=== PATIENT | female | born 1995 | race Caucasian/White ===

== ENCOUNTER 2020-04-01 12:58 | Emergency (ER) | payer BC, SELFPAY ==
[2020-04-01 13:05] VITALS: O2SAT 100
--- NOTE | 2020-04-01 13:05 | XRR_ITS ---
PROCEDURE INFORMATION: Exam: XR Chest, 1 View Exam date and time: 04/01/2020 1:33 PM Age: 24 years old Clinical indication: Cough and dyspnea; Additional info: Dyspnea/cough allergic reaction-lips swelling TECHNIQUE: Imaging protocol: XR of the chest Views: 1 view. COMPARISON: CR Chest 1 [place] [id number] 11/20/2018 8:53 PM FINDINGS: Lungs: Probable minor left lung base volume loss with indistinct lateral costophrenic angle. Visualized lung cunningham otherwise clear. Pleural space: Unremarkable. No obvious pleural effusion. No pneumothorax. Heart/Mediastinum: Unremarkable. No cardiomegaly. Bones/joints: Incidental right cervical rib. XR/XR chest 1V portable [id number] IMPRESSION: Suspect minor volume loss/atelectasis left lung base laterally.
--- NOTE | 2020-04-01 13:06 | ED_ITS ---
HPI - Allergic Reaction General: Chief complaint: Allergic Reaction Stated complaint: allergic reaction Time Seen by Provider: 04/01/20 13:05 History of Present Illness: HPI narrative: 24-year-old female presents emergency room with reported allergic reaction she was around some food began to have difficult time breathing complained of tightness in her throat and mouth. She was given hydroxyzine in route. Did take Benadryl hydroxyzine and epi prior to arrival. She is breathing rapidly appears to be hyperventilating she has numbness and tingling to her fingertips and perioral. MD complaint: allergic reaction Onset (ago): minute(s) Exposure: food Associated symptoms: Reports difficulty breathing, dysphagia, dizziness, hoarseness, itching and nausea; Deny abdominal pain, facial swelling, lip swelling, tongue swelling or vomiting Severity: moderate Treatment prior to arrival: epinephrine and other (Hydroxyzine and Benadryl) Review of Systems Const: Denies: fever(s), chills, body aches, change in appetite, fatigue or malaise ENMT: Reports: hoarseness Card: Denies: chest pain, edema, dyspnea on exertion or orthopnea Resp: Denies: dyspnea, productive cough or non-productive cough GI: Reports: nausea and dysphagia; Denies: abdominal pain or vomiting : Denies: flank pain, difficulty voiding, dysuria, urinary frequency or urinary urgency Skin/Breast: Denies: rash or pruritus Neuro: Reports: dizziness All/Imm: Denies: tongue swelling or facial swelling Physical Exam Const: COMMON NORMALS: no acute distress GENERAL APPEARANCE: cooperative and comfortable ORIENTATION/CONSCIOUSNESS: Yes awake, Yes oriented to person, Yes oriented to place and Yes oriented to time HENMT: COMMON NORMALS: normocephalic, atraumatic and hearing grossly normal bilaterally HEAD & SCALP: normocephalic and atraumatic OTHER: No stridor no facial swelling or edema notes edema of the posterior pharynx of the tongue or lips or face. She had been treated prior to arrival. Eye: COMMON NORMALS: Equal, round and reactive pupils present, EOMs intact bi laterally, conjunctivae normal and no scleral icterus CONJUNCTIVA: Yes conjunctivae normal PUPIL: Yes Equal, round and reactive pupils present Neck/C-Spine: COMMON NORMALS: no JVD Lymph: LYMPHATIC: no lymphadenopathy noted and no lymphedema noted Resp: COMMON NORMALS: normal respiratory effort, No retractions, No use of accessory muscles and clear to auscultation bilaterally AUSCULTATION: clear to auscultation bilaterally Cardio: COMMON NORMALS: no JVD, regular rate, regular rhythm and No murmurs present (Cardio) RATE: regular rate RHYTHM: regular rhythm GI: COMMON NORMALS: Soft to palpation and No hepatosplenomegaly present AUSCULTATION: Yes normoactive bowel sounds PALPATION: Yes Soft to palpation, No Tenderness to palpation present (GI), No Guarding due to palpation present (GI) and Yes No hepatosplenomegaly present Extremity: COMMON NORMALS: normal to inspection, capillary refill normal, no clubbing, cyanosis or edema, no calf tenderness and no pedal edema Neuro: SENSORIUM/ORIENTATION: Yes oriented to person, Yes oriented to place and Yes oriented to time Skin: COMMON NORMALS: no rashes or lesions noted GENERAL SKIN EXAM: no rashes or lesions noted Course Vital Signs: Vital signs: Vital Signs Pulse Rate 97 04/01/20 15:20 Respiratory Rate 19 H 04/01/20 15:20 Blood Pressure 133/72 04/01/20 15:20 Pulse Oximetry 97 04/01/20 15:20 MDM - Allergic Reaction MDM Narrative: Medical decision making narrative: Patient was monitored for 2 hours had no recurrence she is feeling much better no stridor no wheezing we will go ahead and discharge home if has recurrence of any symptoms at all she should return immediately. She should refill her EpiPen as well as states she has some available to her with refills. Lab Data: Labs: Lab Results 04/01/20 04/01/20 04/01/20 Range/Units 13:05 13:05 13:05 WBC 8.9 (4.0-10.0) 10^3/ uL RBC 5.06 (4.1-5.3) 10^6/u L Hgb 13.7 (11.5-15.3) g/dL Hct 42.4 (37.0-47.0) % MCV 83.8 (81-99) fL MCH 27.1 L (28.0-34.0) pg MCHC 32.3 (30.0-36.0) g/dL RDW 13.0 (12.1-15.1) % Plt Count 294 (130-400) 10^3/c mm MPV 10.8 H (7.4-10.4) fL Neut % (Auto) 56.0 % Lymph % (Auto) 36.8 % [place] % (Auto) 5.6 % Eos % (Auto) 1.0 % Baso % (Auto) 0.3 % Neut # (Auto) 4.97 (1.8-7.7) 10^3/u L Lymph # (Auto) 3.3 (0.8-4.8) 10^3/u L [place] # (Auto) 0.5 (0.2-0.9) 10^3/u L Eos # (Auto) 0.1 (0.0-0.8) 10^3/u L Baso # (Auto) 0.0 (0.0-0.1) 10^3/u L Nucleated RBC % (a uto) 0 % Nucleated RBCs # 0.0 /100WBC Specimen Type Arterial Sample Site Radial, left ABG pH 7.45 (7.35-7.45) ABG pCO2 30.7 L (35-45) mmHg ABG pO2 84.2 (80.0-100.0) mmH g ABG HCO3 21.2 L (22-26) mmol/L ABG O2 Saturation 97.8 ABG Base Excess -1.9 (-2.0-2.0) mmol/ L Ras Test Pos A-a O2 Gradient 3.5 L (5-10) mmHg Hematocrit 41.4 (37-47) % Hgb O2 Saturation 96.2 (95-100) % Carboxyhemoglobin 0.9 (0.4-20.1) %THgb Methemoglobin 0.8 (0.4-1.5) % Total Hemoglobin 13.5 (12-16) g/dL Sodium 141.0 138 (131-143) mmol/L Potassium 3.7 4.1 (3.5-5.0) mmol/L Glucose 111.0 112 (70-115) mg/dL Ionized Calcium 1.2 (1.1-1.4) mmol/L O2 Delivery Device Room air FiO2 21.0 % Milking Machine Operator ID Cak Chloride 103 (98-107) mmol/L Carbon Dioxide 22 (22-29) mmol/L Anion Gap 17.1 (5-19) BUN 13 (6-20) mg/dL Creatinine 0.8 (0.5-0.9) mg/dL GFR Calculation 87.4 L (90-130) mL/min Calculated Osmolal ity 283 L (285-295) mOsm/k g Calcium 10.2 (8.5-10.5) mg/dL Total Bilirubin 0.3 (0.15-1.2) mg/dL AST 18 (0-32) U/L ALT 14 (0-33) U/L Alkaline Phosphata se 79 (35-105) IU/L Total Protein 8.0 (6.6-8.7) g/dL Albumin 4.6 (3.5-5.2) g/dL Globulin 3.4 (1.3-4.6) g/dL Discharge Plan Discharge Patient Disposition: Home Clinical Impression: Allergic reaction Condition: Stable Prescriptions: No Action cetirizine 10 mg Tablet 10 mg PO DAILY PRN (Reason: allergies) RF: 0 hydroxyzine HCl 10 mg/5 mL solution 10 mg PO PRN PRN (Reason: itching/hives) RF: 0 EpiPen 0.3 mg/0.3 mL Auto-Injector See Rx Instructions .ROUTE .COMPLEX RF: 0 Vitamin D3 50 mcg (2,000 unit) Tablet 50 mcg PO DAILY RF: 0 Discharge Orders: Discharge Order (Routine); Ordered 04/01/20 Ordered By: Homero Frazier Referrals: Natalie Tomas MD [Primary Care Provider] - Discharge Diet: Usual diet Discharge Activity: Increase activity as tolerated Activity Restrictions/Additional Instructions: Return to the emergency room if you have any problems or difficulty with breath ing or some facial swelling or sensation of your throat swelling. Discharge Date/Time: 04/01/20 15:20 Coding Level of Care Code ED Sign Writer Letterer Or Painter for Chg Fwd Exam Comprehensive
[2020-04-01 13:08] VITALS: BP 131/87; PULSE 100; RESP 25; O2SAT 100; BMI 28.1
[2020-04-01] MEDS: diphenhydrAMINE 50 mg/mL SDV 1mL IVP (13:11)
[2020-04-01 13:16] LABS: ABG PCO2 30.7 mmHg (35-45); ABG PH Result 7.45 (7.35-7.45); Alveolar-Arterial Oxygen Gradi 3.5 mmHg (5-10); Arterial Blood Gas Hematocrit 41.4 % (37-47); Base Excess ABG -1.9 mmol/L (-2.0-2.0); Blood Gas Allen Test Pos; Blood Gas Operator Identificat CAK; Blood Gas Sample Site Radial, left; Blood Gas Sample Type Arterial; Carboxyhemoglobin 0.9 %THgb (0.4-20.1); HCO3 ABG 21.2 mmol/L (22-26); HGB O2 Sat 96.2 % (95-100); Ionized Calcium Level - ABG 1.2 mmol/L (1.1-1.4); Methemoglobin 0.8 % (0.4-1.5); Oxygen Device ROOM AIR; Oxygen Saturation ABG 97.8; PO2 ABG 84.2 mmHg (80.0-100.0); Potassium Level - ABG 3.7 mmol/L (3.5-5.0); Total Hemoglobin 13.5 g/dL (12-16)
[2020-04-01 13:23] LABS: Basophils % 0.3 %; Eosinophils # 0.1 10^3/uL (0.0-0.8); Hematocrit 42.4 % (37.0-47.0); Hemoglobin 13.7 g/dL (11.5-15.3); Lymphocytes # 3.3 10^3/uL (0.8-4.8); Lymphocytes % 36.8 %; Mean Corpuscular HGB Conc 32.3 g/dL (30.0-36.0); Mean Corpuscular Hemoglobin 27.1 pg (28.0-34.0); Mean Corpuscular Volume 83.8 fL (81-99); Mean Platelet Volume 10.8 fL (7.4-10.4); Monocytes # 0.5 10^3/uL (0.2-0.9); Monocytes % 5.6 %; Neutrophils # 4.97 10^3/uL (1.8-7.7); Nucleated Red Blood Cells % 0 %; Platelet Count 294 10^3/cmm (130-400); Red Blood Count 5.06 10^6/uL (4.1-5.3); White Blood Count 8.9 10^3/uL (4.0-10.0)
[2020-04-01 13:36] LABS: Alanine Aminotransferase 14 U/L (0-33); Albumin Level 4.6 g/dL (3.5-5.2); Alkaline Phosphatase 79 IU/L (35-105); Anion Gap 17.1 (5-19); Aspartate Amino Transferase 18 U/L (0-32); Blood Urea Nitrogen 13 mg/dL (6-20); Calcium 10.2 mg/dL (8.5-10.5); Carbon Dioxide 22 mmol/L (22-29); Chloride 103 mmol/L (98-107); Globulin 3.4 g/dL (1.3-4.6); Glomerular Filtration Rate 87.4 mL/min (90-130); Glucose 112 mg/dL (65-115); Osmolality Calculated 283 mOsm/kg (285-295); Potassium 4.1 mmol/L (3.5-5.1); Sodium 138 mmol/L (136-145); Total Bilirubin 0.3 mg/dL (0.15-1.2)
[2020-04-01 14:00] VITALS: BP 124/76; PULSE 94; RESP 16; O2SAT 98
[2020-04-01 15:20] VITALS: BP 133/72; PULSE 97; RESP 19; O2SAT 97
== END 2020-04-01 15:20 | disposition home or self-care (01) ==
PROVIDERS: Emergency Provider Family Medicine; PCP Family Medicine
DX: T78.40XA Allergy, unspecified, initial encounter (principal)
CPT/HCPCS: 12345; 36600; 71045; 80051; 80053; 82810; 83986; 85025; 96374; 96375; 99282; J1200

== ENCOUNTER 2021-01-24 20:03 | Emergency (ER) | payer BC, SELFPAY ==
[2021-01-24] VITALS (7 sets, daily range): BP systolic 108–147; BP diastolic 66–95; PULSE 98–129; RESP 16–30; TEMP 36.8; O2SAT 96–97; BMI 31.1
--- NOTE | 2021-01-24 03:22 | XRR_ITS ---
PROCEDURE INFORMATION: Exam: XR Chest Exam date and time: 01/24/2021 3:22 AM Age: 25 years old Clinical indication: Shortness of breath; Patient HX: SOB, allergic reaction to chicken tonight TECHNIQUE: Imaging protocol: XR of the chest. Views: 1 view. COMPARISON: CR XR chest 1V portable [id number] 04/01/2020 1:18 PM FINDINGS: Lungs: Unremarkable. No consolidation. Pleural spaces: Unremarkable. No pleural effusion. No pneumothorax. Heart/Mediastinum: Unremarkable. No cardiomegaly. Bones/joints: Unremarkable. XR/XR chest 1V portable [id number] IMPRESSION: No acute findings.
[2021-01-24] MEDS: diphenhydrAMINE 50 mg/mL SDV 1mL 25 MG IVP (20:20)
[2021-01-24] MEDS: famotidine 20 mg/2 mL INJ IVP (20:21)
--- NOTE | 2021-01-24 20:31 | PC.NURSE ---
States she feels better than at arrival; VSS. Speaking in full sentences. in room.
--- NOTE | 2021-01-24 20:51 | ED_ITS ---
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 She presents after having to give herself epinephrine via EpiPen due to ingestion of a substance. She began to itch, cough, and her throat began to feel tight. The first EpiPen did not completely relieve her symptoms, and she started to rebound, so on her way into the ER, she used a second 1. She also took hydroxyzine. She is starting to feel some better, certainly not worse at this point. MD complaint: allergic reaction and other Onset (ago): minute(s) Exposure: food Associated symptoms: Reports abdominal pain, difficulty breathing, hoarseness and tongue swelling; Deny facial swelling Severity: moderate Treatment prior to arrival: epinephrine and other Previous Allergic Reaction History: prior ED visit(s) and anaphylaxis Review of Systems Const: Denies: fever(s) or chills Eyes: Denies: change in vision ENMT: Reports: hoarseness Card: Reports: palpitations; Denies: chest pain Resp: Reports: dyspnea and non-productive cough; Denies: productive cough or wheezing GI: Reports: abdominal pain Neuro: Denies: confusion All/Imm: Reports: tongue swelling; Denies: facial swelling Physical Exam Const: GENERAL APPEARANCE: in distress, anxious and ill appearing ORIENTATION/CONSCIOUSNESS: Yes awake, Yes oriented to person, Yes oriented to place and Yes oriented to time HENMT: COMMON NORMALS: normocephalic and Normal external nose present HEAD & SCALP: normocephalic FACE & SINUS: normal facial exam NOSE: Normal external nose present and Normal nares present MOUTH: Normal oral and palatal mucosa present and tongue normal THROAT: posterior oropharynx normal and uvula midline Eye: COMMON NORMALS: Equal, round and reactive pupils present, EOMs intact bilaterally and conjunctivae normal CONJUNCTIVA: Yes conjunctivae normal PUPIL: Yes Equal, round and reactive pupils present Chest: COMMONS NORMALS: normal inspection of the chest Resp: COMMON NORMALS: normal respiratory effort, No use of accessory muscles and clear to auscultation bilaterally AUSCULTATION: clear to auscultation bilaterally Cardio: COMMON NORMALS: regular rate and regular rhythm RATE: regular rate RHYTHM: regular rhythm GI: COMMON NORMALS: Normal to inspection, nondistended, normoactive bowel sounds present and Soft to palpation PALPATION: Yes Soft to palpation Neuro: SENSORIUM/ORIENTATION: Yes oriented to person, Yes oriented to place and Yes oriented to time Course Vital Signs: Vital signs: Vital Signs Temperature 98.2 F 01/24/21 22:45 Pulse Rate 129 H 01/24/21 22:45 Respiratory Rate 16 01/24/21 22:45 Blood Pressure 111/73 01/24/21 22:45 Pulse Oximetry 97 01/24/21 22:45 MDM - Allergic Reaction MDM Narrative: Medical decision making narrative: Patient is much improved. She is not itching. Not coughing. Swelling and tightness in the throat is improved she shows no signs of rebound past 2 hours status post use of EpiPen. She will be allowed home. She will continue her cetirizine, and she will be placed on Medrol for the next few days. Discharge Plan Discharge Patient Disposition: Home Clinical Impression: Allergic reaction Qualifiers: Encounter type: initial encounter Qualified Code(s): T78.40XA - Allergy, unspecified, initial encounter Condition: Stable Prescriptions: New Medrol (Jmi) 4 mg tablets,dose pack See Rx Instructions .ROUTE .COMPLEX Qty: 21 RF: 0 EpiPen 2-Jim 0.3 mg/0.3 mL auto-injector 0.3 mg IM Q10M PRN (Reason: anaphylaxis) Qty: 1 RF: 0 No Action cetirizine 10 mg Tablet 10 mg PO DAILY PRN (Reason: allergies) RF: 0 hydroxyzine HCl 10 mg/5 mL solution 10 mg PO PRN PRN (Reason: itching/hives) RF: 0 EpiPen 0.3 mg/0.3 mL Auto-Injector See Rx Instructions .ROUTE .COMPLEX RF: 0 Vitamin D3 50 mcg (2,000 unit) Tablet 50 mcg PO DAILY RF: 0 Discharge Orders: Discharge ED (Routine); Ordered 01/24/21 Ordered By: Brian Sibley Referrals: Natalie Tomas MD [Primary Care Provider] - 4-7 days Discharge Diet: Advance as tolerated Discharge Activity: Resume usual activity Patient Instructions: Food Allergy (ED), Anaphylaxis (ED) Activity Restrictions/Additional Instructions: Return for any significant return of your symptoms. Coding Level of Care Code ED Delivery Truck Driver Heavy for Chg Fwd Exam Detailed
--- NOTE | 2021-01-24 21:26 | PC.NURSE ---
REports feeling much better now. No cough or clearing of throat noted at this time. VSS. in room.
== END 2021-01-24 22:46 | disposition home or self-care (01) ==
PROVIDERS: Emergency Provider Emergency Medicine; PCP Family Medicine
DX: T78.40XA Allergy, unspecified, initial encounter (principal)
CPT/HCPCS: 71045; 96374; 96375; 99284; J1200; J2930; J3490

== ENCOUNTER 2022-07-03 17:37 | Emergency (ER) | payer BC, SELFPAY ==
[2022-07-03 18:12] VITALS: BP 115/78; PULSE 105; RESP 16; TEMP 37.4; O2SAT 99; BMI 37.0
--- NOTE | 2022-07-03 19:27 | ED_ITS ---
HPI - Abdominal Pain General: Chief Complaint: Abdominal Pain Stated Complaint: 5-6 weeks , cramping Time Seen by Provider: 07/03/22 19:24 History of Present Illness: Patient is a G1 26-year-old female that is currently 5 weeks and is having cramping abdominal pain. Symptoms started approximately 3 days ago. She reports having some intermittent lower abdominal and pelvic cramping that has progressed over the past couple days and is now becoming more constant. She reports 3 days ago having some brown spotting type discharge that has now progressed and passing some clots. She says bleeding is very mild and she has not been having any red blood and bleeding is not heavy enough to bleed through any pads. Endorses some mild nausea. Last menstrual period was on May 21. Associated Symptoms: Reports GI cramping and nausea; Denies chills, constipation, diarrhea, dysuria, fever(s), hematochezia, hematuria and vomiting Related Data: Date of Last Menstrual Period: 05/21/22 Review of Systems Const: Denies: fever(s), chills or fatigue Eyes: Denies: change in vision or eye discomfort ENMT: Denies: throat pain, odynophagia, nasal discharge or nasal congestion Card: Denies: chest pain, palpitations, edema, swelling of feet/ankles, dyspnea on exertion or orthopnea Resp: Denies: dyspnea, productive cough or non-productive cough GI: Reports: nausea and GI cramping; Denies: abdominal pain, vomiting, diarrhea, constipation or hematochezia : Reports: vaginal bleeding (Spotting and passing some occasional clots.); Denies: flank pain, dysuria or hematuria Musc: Denies: neck pain, back pain or extremity swelling Skin/Breast: Denies: rash or new lesions Neuro: Denies: headache(s), numbness in extremities or weakness in extremities PFSH ED PFSH: Medical History No pertinent family history Surgical History No pertinent past surgical history Female Reproductive History: Date of last menstrual period: 05/21/22 Physical Exam Const: COMMON NORMALS: patient oriented x3 and alert GENERAL APPEARANCE: cooperative HENMT: COMMON NORMALS: normocephalic HEAD & SCALP: normocephalic MOUTH: Normal oral and palatal mucosa present THROAT: posterior oropharynx normal and uvula midline Eye: COMMON NORMALS: Equal, round and reactive pupils present and conjunctivae normal CONJUNCTIVA: Yes conjunctivae normal PUPIL: Yes Equal, round and reactive pupils present Neck/C-Spine: COMMON NORMALS: supple GENERAL: Yes normal visual inspection Resp: COMMON NORMALS: normal respiratory effort, No retractions, No use of accessory muscles and clear to auscultation bilaterally AUSCULTATION: clear to auscultation bilaterally Cardio: COMMON NORMALS: regular rate, regular rhythm, S1 normal heart sound present, S2 normal heart sound present, No gallops present (Cardio), No clicks present (Cardio), No murmurs present (Cardio) and Peripheral pulses 2+ thr oughout RATE: regular rate RHYTHM: regular rhythm HEART SOUNDS: S1 normal heart sound present and S2 normal heart sound present PERIPHERAL PULSES: Peripheral pulses 2+ throughout GI: COMMON NORMALS: Normal to inspection, nondistended, normoactive bowel sounds present, Soft to palpation, non-tender and no masses PALPATION: Yes Soft to palpation : COMMON NORMALS: Yes no CVA tenderness BLADDER/KIDNEY EXAM: Yes no CVA tenderness Back/Pelvis: COMMON NORMALS: no CVA tenderness Extremity: COMMON NORMALS: normal to inspection Neuro: COMMON NORMALS: patient oriented x3 SENSORIUM/ORIENTATION: Yes alert GAIT: Yes Normal gait present Skin: GENERAL SKIN EXAM: dry skin Course Vital Signs: Vital signs: Vital Signs Temperature 99.3 F 07/03/22 18:12 Pulse Rate 105 H 07/03/22 18:12 Respiratory Rate 16 07/03/22 18:12 Blood Pressure 115/78 07/03/22 18:12 Pulse Oximetry 99 07/03/22 18:12 Oxygen Delivery Me thod 07/03/22 18:12 MDM - Abdominal Pain Medical Decision Making Patient is a G1 26-year-old female that is currently 5 weeks and is having cramping abdominal pain. Symptoms started approximately 3 days ago. She reports having some intermittent lower abdominal and pelvic cramping that has progressed over the past couple days and is now becoming more constant. She reports 3 days ago having some brown spotting type discharge that has now progressed and passing some clots. She says bleeding is very mild and she has not been having any red blood and bleeding is not heavy enough to bleed through any pads. Vital stable. Exam of patient is benign. Sodium 128 and the rest of CBC and CMP were unremarkable. hCG quant 15,730. UA was unremarkable. Ultrasound OB showed single live intrauterine at about 6 weeks and 1 day. heart rate around 111. Patient does have a small uterine fibroid measures up to 9 mm. Cervix unremarkable. Patient was given p.o. tablet of sodium chloride and she was stable for discharge home. She was told to rest and limit any activity and lifting for the next couple days and she has a appointment with her OB doctor this coming July 05. Return to ED precautions given. Patient understood and agreed with plan. Lab Data I reviewed the patient's lab results. 07/03/22 19:45 07/03/22 19:45 Labs/Radiology: Radiology Impressions Obstetrics Ultrasound 07/03/22 19:41 IMPRESSION: 1. Single live IUP, age of about 6 weeks 1 day which gives an MARISSA of 02/25/2023. 2. Full details above. Advise appropriate meat cooler follow-up. 3. No acute findings seen today. Laboratory Results WBC 6.8 10^3/uL (4.0-10.0) 07/03/22 19:45 RBC 5.14 10^6/uL (4.1-5.3) 07/03/22 19:45 Hgb 14.1 g/dL (11.5-15.3) 07/03/22 19:45 Hct 43.4 % (37.0-47.0) 07/03/22 19:45 MCV 84.4 fl (81-99) 07/03/22 19:45 MCH 27.4 pg (28.0-34.0) L 07/03/22 19:45 MCHC 32.5 g/dL (30.0-36.0) 07/03/22 19:45 RDW 12.8 % (12.1-15.1) 07/03/22 19:45 Plt Count 264 10^3/cmm (130-400) 07/03/22 19:45 MPV 10.2 fL (7.4-10.4) 07/03/22 19:45 Neut % (Auto) 55.8 % 07/03/22 19:45 Lymph % (Auto) 34.8 % 07/03/22 19:45 [place] % (Auto) 6.7 % 07/03/22 19:45 Eos % (Auto) 2.1 % 07/03/22 19:45 Baso % (Auto) 0.3 % 07/03/22 19:45 Neut # (Auto) 3.78 10^3/uL (1.8-7.7) 07/03/22 19:45 Lymph # (Auto) 2.4 10^3/uL (0.8-4.8) 07/03/22 19:45 [place] # (Auto) 0.5 10^3/uL (0.2-0.9) 07/03/22 19:45 Eos # (Auto) 0.1 10^3/uL (0.0-0.8) 07/03/22 19:45 Baso # (Auto) 0.0 10^3/uL (0.0-0.1) 07/03/22 19:45 Nucleated RBC % (auto) 0 % 07/03/22 19:45 Nucleated RBCs # 0.0 /100WBC 07/03/22 19:45 Sodium 128 mmol/L (136-145) L 07/03/22 19:45 Potassium 3.6 mmol/L (3.5-5.1) 07/03/22 19:45 Chloride 97 mmol/L (98-107) L 07/03/22 19:45 Carbon Dioxide 21 mmol/L (22-29) L 07/03/22 19:45 Anion Gap 13.6 (5-19) 07/03/22 19:45 BUN 9 mg/dL (6-20) 07/03/22 19:45 Creatinine 0.5 mg/dL (0.5-0.9) 07/03/22 19:45 GFR Calculation 148.0 mL/min (90-130) H 07/03/22 19:45 Glucose 87 mg/dL (65-115) 07/03/22 19:45 Calculated Osmolality 264 mOsm/kg (285-295) L 07/03/22 19:45 Calcium 9.2 mg/dL (8.5-10.5) 07/03/22 19:45 Total Bilirubin 0.2 mg/dL (0.15-1.2) 07/03/22 19:45 AST 47 U/L (0-32) H 07/03/22 19:45 ALT 99 U/L (0-33) H 07/03/22 19:45 Alkaline Phosphatase 106 U/L (35-105) H 07/03/22 19:45 Total Protein 7.9 g/dL (6.6-8.7) 07/03/22 19:45 Albumin 4.1 g/dL (3.5-5.2) 07/03/22 19:45 Globulin 3.8 g/dL (1.3-4.6) 07/03/22 19:45 Ser , Semi-Qnt 04892.00 mIU/mL 07/03/22 19:45 Urine Color Yellow (Yellow) 07/03/22 20: Urine Appearance Clear (CLEAR) 07/03/22 20:29 Urine pH 5 (5-7) 07/03/22 20:29 Ur Specific [place] 1.020 (1.005-1.030) 07/03/22 20:29 Urine Protein Neg (Negative) 07/03/22 20:29 Urine Glucose (UA) Norm (Normal) 07/03/22 20:29 Urine Ketones Negative (Negative) 07/03/22 20:29 Urine Blood 3+ (Negative) H 07/03/22 20: Urine Nitrate Negative (Negative) 07/03/22 20:29 Urine Bilirubin Neg (Negative) 07/03/22 20:29 Urine Urobilinogen 4 mg/dL (Negative) H 07/03/22 20:29 Ur Leukocyte Esterase Negative (Negative) 07/03/22 20:29 Urine RBC 0-4 /hpf (0-2) H 07/03/22 20:29 Urine WBC None /hpf (0-5) 07/03/22 20:29 Ur Squamous Epith Cells None /hpf (0-5) 07/03/22 20:29 Amorphous Sediment Not Reportable 07/03/22 20: Urine Bacteria None /hpf (NONE) 07/03/22 20:29 Discharge Plan Discharge Patient Disposition: Home Clinical Impression: First trimester bleeding, Pelvic cramping, Hyponatremia Condition: Stable Prescriptions: No Action cetirizine 10 mg Tablet 10 mg PO DAILY PRN (Reason: allergies) hydroxyzine HCl 10 mg/5 mL solution 10 mg PO PRN PRN (Reason: itching/hives) EpiPen 0.3 mg/0.3 mL Auto-Injector See Rx Instructions .ROUTE .COMPLEX Rx Instructions: use as directed. Vitamin D3 50 mcg (2,000 unit) Tablet 50 mcg PO DAILY Medrol (Jim) 4 mg tablets,dose pack See Rx Instructions .ROUTE .COMPLEX Qty: 21 0RF Rx Instructions: orally per package directions EpiPen 2-Jim 0.3 mg/0.3 mL auto-injector 0.3 mg IM Q10M PRN (Reason: anaphylaxis) Qty: 1 0RF Rx Instructions: do not exceed 3 doses per episode Discharge Orders: Discharge ED (Routine); Ordered 07/03/22 Ordered By: Erasmo Reyna Referrals: Natalie Tomas MD [Primary Care Provider] - Discharge Diet: Regular Discharge Activity: Increase activity as tolerated Activity Restrictions/Additional Instructions: Follow-up with OB doctor at your next scheduled appointment on Monday for follow-up. Rest and limit activity until you see your OB doctor on Monday. Take [id number] Tylenol to help with pain. Return to the ER or your medical provider if condition worsens. Please read and understand discharge in structions. Thank you for choosing [facility] for your healthcare needs today. Please realize this is an emergency room and that we are providing you with a medical screening exam and this may not be complete and all inclusive of all the testing and or work up that you may need to determine your ailment or severity of your illness. It is very important that you follow up as instructed or that you return to the Emergency Department should you have concerns or if your condition changes or worsens in any way. Stand Alone Forms: Work/School Release Coding Level of Care Code ED Rn Homecare for Morgan Fwaakash Exam Comprehensive
--- NOTE | 2022-07-03 19:41 | USR_ITS ---
PROCEDURE INFORMATION: Exam: US First Trimester, Transabdominal Exam date and time: 07/03/2022 7:55 PM Age: 26 years old Clinical indication: Lmp or gestational age (in weeks): 6 w 1; Antepartum complications; Bleeding; ; Additional info: 5 weeks with cramping and spotting TECHNIQUE: Imaging protocol: Real-time transabdominal obstetrical ultrasound of the maternal pelvis and a first trimester , less than 14 weeks 0 days, with image documentation. COMPARISON: US pelvic complete* [id number] 03/07/2017 4:58 PM FINDINGS: Gestation: Intrauterine gestation. Yolk sac is unremarkable. Embryonic/ heart rate: 111/min. Extra-embryonic membranes/Placenta: Unremarkable. No subchorionic bleed. Amniotic fluid: Amniotic fluid and extra-amniotic fluid is normal for gestational age. BIOMETRY: Gestational age (AUA): 6W 1D with MARISSA of 02/25/2023. MATERNAL: Uterus: A small uterine fibroid measures up to 9 mm. Otherwise, the uterus is unremarkable. Cervix: Unremarkable. Right ovary/adnexa: Unremarkable ovary. Left ovary/adnexa: Unremarkable ovary. Intraperitoneal space: No intraperitoneal free fluid. US/US OB lmt with transvaginal IMPRESSION: 1. Single live IUP, age of about 6 weeks 1 day which gives an MARISSA of 02/25/2023. 2. Full details above. Advise appropriate photogrammetric engineer follow-up. 3. No acute findings seen today.
[2022-07-03 19:57] LABS: Basophils % 0.3 %; Eosinophils # 0.1 10^3/uL (0.0-0.8); Eosinophils % 2.1 %; Hematocrit 43.4 % (37.0-47.0); Hemoglobin 14.1 g/dL (11.5-15.3); Lymphocytes # 2.4 10^3/uL (0.8-4.8); Lymphocytes % 34.8 %; Mean Corpuscular HGB Conc 32.5 g/dL (30.0-36.0); Mean Corpuscular Hemoglobin 27.4 pg (28.0-34.0); Mean Corpuscular Volume 84.4 fl (81-99); Mean Platelet Volume 10.2 fL (7.4-10.4); Monocytes # 0.5 10^3/uL (0.2-0.9); Monocytes % 6.7 %; Neutrophils # 3.78 10^3/uL (1.8-7.7); Neutrophils % 55.8 %; Nucleated Red Blood Cells % 0 %; Platelet Count 264 10^3/cmm (130-400); Red Blood Count 5.14 10^6/uL (4.1-5.3); Red Cell Distribution Width 12.8 % (12.1-15.1); White Blood Count 6.8 10^3/uL (4.0-10.0)
[2022-07-03 20:30] LABS: Alanine Aminotransferase 99 U/L (0-33); Albumin Level 4.1 g/dL (3.5-5.2); Alkaline Phosphatase 106 U/L (35-105); Anion Gap 13.6 (5-19); Aspartate Amino Transferase 47 U/L (0-32); Blood Urea Nitrogen 9 mg/dL (6-20); Calcium 9.2 mg/dL (8.5-10.5); Carbon Dioxide 21 mmol/L (22-29); Chloride 97 mmol/L (98-107); Globulin 3.8 g/dL (1.3-4.6); Glucose 87 mg/dL (65-115); Osmolality Calculated 264 mOsm/kg (285-295); Potassium 3.6 mmol/L (3.5-5.1); Sodium 128 mmol/L (136-145); Total Bilirubin 0.2 mg/dL (0.15-1.2); Total Protein 7.9 g/dL (6.6-8.7)
[2022-07-03] MEDS: acetaminophen 500 mg Tablet 1000 MG PO (20:33)
[2022-07-03] MEDS: ondansetron 4 MG Tablet PO (20:33)
[2022-07-03 21:22] LABS: Urine Appearance Clear (CLEAR); Urine Color Yellow (Yellow); Urobilinogen Urine 4 mg/dL (Negative); pH Urine 5 (5-7)
[2022-07-03] MEDS: sodium chloride 1 gm Tablet PO (21:22)
[2022-07-03 21:23] LABS: Add Urine Microscopic? YES; Bilirubin Urine Neg (Negative); Blood Urine 3+ (Negative); Glucose Urine UA Norm (Normal); Ketones Urine Negative (Negative); Leukocyte Esterase Urine Negative (Negative); Nitrate Urine Negative (Negative); Protein Urine Neg (Negative)
[2022-07-03 21:24] LABS: Add Urine Culture? Yes; RBC Urine 0-4 /hpf (0-2)
== END 2022-07-03 21:30 | disposition home or self-care (01) ==
PROVIDERS: Emergency Provider Physician Assistant; PCP Family Medicine
DX: O20.9 Hemorrhage in early pregnancy, unspecified (principal); Z3A.01 Less than 8 weeks gestation of pregnancy; O26.891 Other specified pregnancy related conditions, first trimester; R10.2 Pelvic and perineal pain; E87.1 Hypo-osmolality and hyponatremia
CPT/HCPCS: 76815; 76817; 80053; 81001; 84702; 85025; 87086; 99284; E0352; Q0162

== ENCOUNTER 2022-10-10 08:50 | Outpatient (CLI) | payer BC, SELFPAY ==
--- NOTE | 2022-10-10 09:07 | US_ITS ---
WS: [id number] OB ultrasound, 10/10/2022 Clinical Data: ANATOMY CHECK Comparison: OB ultrasound, 07/03/2022 Findings: There is a single intrauterine in the breech presentation. The placenta is Anterior and gra de 0. The cervix measures 4.06 cm and is closed. There is a normal amount of amnionic fluid. The feta l heart rate is 150 beats per minute. Measurements of growth and development: BPD: 4.8 cm 20 weeks 4 days HC: 18.4 cm 20 weeks 5 days AC: 15.0 cm 20 weeks 2 days FL: 3.5 cm 21 weeks 0 days The estimated weight is 364 grams; 13 ounces The estimated gestational age is 20w5d with an MARISSA of approximately 02/22/2023. anatomy show a normal stomach, kidneys, bladder, cord insertion, three-vessel cord, entire spin e, four-chamber heart, LVOT, RVOT, both upper and lower extremities, fingers, toes, upper lip, latera l cerebral ventricles, cerebellum and cisterna magna. Tail gender is noted. US/US OB >= 14 weeks fetus [id number] Impression: 1. Single intrauterine in breech presentation. 2. Estimated gestational age 20w5d with an MARISSA of 02/22/2023. 3. heart rate 150 beats per minute.
== END 2022-10-10 08:51 | disposition home or self-care (01) ==
LOC: RAD 08:54
PROVIDERS: PCP Family Medicine; Visit Provider Family Medicine
DX: O32.1XX0 Maternal care for breech presentation, not applicable or unspecified (principal); Z3A.20 20 weeks gestation of pregnancy
CPT/HCPCS: 76805

== ENCOUNTER 2022-12-11 22:47 | Outpatient (CLI) | payer BC, SELFPAY ==
[2022-12-11] VITALS (13 sets, daily range): BP systolic 113–121; BP diastolic 65–80; PULSE 84–104; TEMP 37.3; O2SAT 96–99; BMI 37.7
--- NOTE | 2022-12-11 23:30 | USR_ITS ---
PROCEDURE INFORMATION: Exam: US , Limited Exam date and time: 12/11/2022 11:52 PM Age: 27 years old Clinical indication: Lmp or gestational age (in weeks): 29w1d; Other: Pre term labor; ; Additional info: Cervical length and marcial LABS AND CLINICAL REPORTS: Last menstrual period start date: 05/21/2022 Gestational age (Established): 29 w 1 d Estimated due date (Established): 02/25/2023 TECHNIQUE: Imaging protocol: Real-time ultrasound of the maternal uterus with image documentation. Exam focused on the clinical indication. COMPARISON: US OB >= 14 weeks fetus [id number] 10/10/2022 9:22 AM FINDINGS: Gestation: Single live intrauterine . heart rate: heart rate 144 bpm. presentation: Vertex presentation. Amniotic fluid index: MARCIAL is 19.6 cm. Amniotic fluid index normal at 19.6. MATERNAL: Cervix: Cervix is closed and normal in length measuring 3.5 cm. US/US OB limited [id number] IMPRESSION: 1. Amniotic fluid index normal at 19.6. 2. Cervix is closed and normal in length measuring 3.5 cm. 3. Single live intrauterine . 4. heart rate 144 bpm. 5. Vertex presentation.
[2022-12-11 23:31] LABS: Add Urine Microscopic? NO; Charge for UA Resulting for Rev
[2022-12-11 23:52] LABS: Glucose Urine UA Norm (Normal); Protein Urine Neg (Negative); Urine Appearance Clear (CLEAR); Urine Color Yellow (Yellow); pH Urine 5 (5-7)
[2022-12-11 23:53] LABS: Bilirubin Urine Neg (Negative); Blood Urine Neg (Negative); Ketones Urine 2+ (Negative); Leukocyte Esterase Urine Negative (Negative); Nitrate Urine Negative (Negative); Urobilinogen Urine Norm (Negative)
[2022-12-12] VITALS (27 sets, daily range): BP systolic 112–122; BP diastolic 60–75; PULSE 71–100; O2SAT 96–100
[2022-12-12 00:23] LABS: Glucose Point of Care 88 mg/dL (70-110)
== END 2022-12-12 02:34 | disposition home or self-care (01) ==
LOC: OPOB 22:48 → OBGYN 22:48
PROVIDERS: PCP Family Medicine; Visit Provider Family Medicine
DX: O26.899 Other specified pregnancy related conditions, unspecified trimester (principal); R10.9 Unspecified abdominal pain; M54.9 Dorsalgia, unspecified; Z3A.00 Weeks of gestation of pregnancy not specified
CPT/HCPCS: 36416; 59025; 76815; 81003; 82962; 99211

== ENCOUNTER 2022-12-21 09:02 | Outpatient (CLI) | payer BC, SELFPAY ==
--- NOTE | 2022-12-21 09:14 | US_ITS ---
WS: [id number] LIMITED OBSTETRICAL ULTRASOUND HISTORY: HIGH RISK -3RD TRIMESTER/GESTATIONAL DIABETES COMPARISON: 10/10/2022, 07/03/2022 and 12/11/2022 Presentation: Vertex. Cervix: Closed and normal length. Placenta: Anterior, no previa or abruption. Grade: 1 HEART: FHR of 160 BPM. measurements: BPD = 8.0 cm = 32w1d; 84th percentile HC = 29.7 cm = 32w6d; 77th percentile AC = 28.5 cm = 32w4d; 92nd percentile FL = 6.2 cm = 31w6d; 73rd percentile Amniotic fluid is visually normal. EFW: 1950 g; 82nd percentile AGA by ultrasound: 32w3d MARISSA by ultrasound: 02/12/2023 Biometry is internally concordant. US/[place] [id number] IMPRESSION: 1. Single intrauterine gestation of 32 weeks 3 days with an EDC of 02/12/2023. Fetus measuring approximately 13 days greater in size than expected based upon the first trimester ultrasound. 2. Estimated weight at the 82nd percentile. 3. Abdominal circumference at the 92nd percentile for age. All of the biometry percentiles are mildly elevated. The only one greater than the 90th percentile is the abdominal circumference.
== END 2022-12-21 09:03 | disposition home or self-care (01) ==
PROVIDERS: PCP Family Medicine; Visit Provider Family Medicine
DX: O09.93 Supervision of high risk pregnancy, unspecified, third trimester (principal); O24.419 Gestational diabetes mellitus in pregnancy, unspecified control; Z3A.32 32 weeks gestation of pregnancy
CPT/HCPCS: 76816

== ENCOUNTER 2023-01-30 08:56 | Outpatient (CLI) | payer BC, SELFPAY ==
--- NOTE | 2023-01-30 09:07 | US_ITS ---
WS: [id number] LIMITED OBSTETRICAL ULTRASOUND HISTORY: SUPERVISION HIGH RISK /3RD TRIMESTER/GEST IONAL DM COMPARISON: 07/03/2022, 10/10/2022 Presentation: Vertex Cervix: Obscured by the head. Placenta: Anterior, no previa or abruption. Grade: 1 HEART: FHR of 126 BPM. measurements: BPD = 8.8 cm = 35w3d; 36th percentile HC = 32.1 cm = 36w1d; 19th percentile AC = 32.1 cm = 36w0d; 53rd percentile FL = 7.1 cm = 36w1d; 43rd percentile MARCIAL: 13.3 cm EFW: 2824 g; 60th percentile AGA by ultrasound: 36w0d MARISSA by ultrasound: 02/27/2023 Measurements are internally concordant. [place] [id number] IMPRESSION: 1. Single intrauterine gestation of 36 weeks 0 days with an EDC of 02/27/2023. 2. Appropriate growth since the first trimester ultrasound. Fetus is measuring close to the first trimester determined gestational age. 3. No growth asymmetry. 4. Estimated weight at the 60th percentile.
== END 2023-01-30 08:57 | disposition home or self-care (01) ==
LOC: RAD 08:59
PROVIDERS: PCP Family Medicine; Visit Provider Family Medicine
DX: O09.93 Supervision of high risk pregnancy, unspecified, third trimester (principal); O24.419 Gestational diabetes mellitus in pregnancy, unspecified control; Z3A.36 36 weeks gestation of pregnancy
CPT/HCPCS: 76816

== ENCOUNTER 2023-02-18 21:02 | Outpatient (CLI) | payer BC, SELFPAY ==
[2023-02-18] VITALS (21 sets, daily range): BP systolic 119–144; BP diastolic 67–81; PULSE 85–147; RESP 16; TEMP 35.9; O2SAT 95–100; BMI 40.0
== END 2023-02-18 23:15 | disposition home or self-care (01) ==
LOC: OPOB 21:03 → OBGYN 21:04
PROVIDERS: PCP Family Medicine; Visit Provider Family Medicine
DX: O47.9 False labor, unspecified (principal); Z3A.00 Weeks of gestation of pregnancy not specified
CPT/HCPCS: 59025; 99211

== ENCOUNTER 2023-02-27 04:27 | Inpatient (IN) | payer BC, SELFPAY ==
[2023-02-27] VITALS (20 sets, daily range): BP systolic 119–146; BP diastolic 68–98; PULSE 73–113; RESP 15–16; TEMP 36.2; BMI 38.7
[2023-02-27 04:28] LABS: Glucose Point of Care 83 mg/dL (70-110)
[2023-02-27 04:45] LABS: Basophils % 0.5 %; Eosinophils # 0.1 10^3/uL (0.0-0.8); Eosinophils % 0.9 %; Hematocrit 34.1 % (37.0-47.0); Lymphocytes # 2.3 10^3/uL (0.8-4.8); Lymphocytes % 26.1 %; Mean Corpuscular HGB Conc 32.3 g/dL (30.0-36.0); Mean Corpuscular Hemoglobin 25.1 pg (28.0-34.0); Mean Corpuscular Volume 77.7 fl (81-99); Mean Platelet Volume 12.1 fL (7.4-10.4); Monocytes # 0.6 10^3/uL (0.2-0.9); Monocytes % 6.2 %; Neutrophils # 5.82 10^3/uL (1.8-7.7); Neutrophils % 65.7 %; Nucleated Red Blood Cells % 0 %; Platelet Count 204 10^3/cmm (130-400); Red Blood Count 4.39 10^6/uL (4.1-5.3); Red Cell Distribution Width 15.1 % (12.1-15.1); White Blood Count 8.9 10^3/uL (4.0-10.0)
[2023-02-27] MEDS: miSOPROStol 100 mcg tablet 25 MCG VAGINAL ×3 (05:13→17:53)
--- NOTE | 2023-02-27 07:45 | P.HP_ITS ---
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 course complicated by mild third trimester anemia- on iron supplementation and diet controlled gestational diabetes. Denies cramping/contractions, LOF, vaginal bleeding. Good movement. care was good and starting in first trimester. Anatomy US and Growth US have been normal. She does report hx anaphylaxis to chicken and hx poor response to nebulized epinephrine- she is able to have other forms of epinephrine. Present Details : 1 Para: 0 Labs Blood type OB HPI: AB (+) positive Rubella: Non-Immune RPR: Negative GBS: Negative HBsAG: Negative Other Lab Information: HCV ab negative HIV negative GC/Chlam negative Initial H/H 13.0/38.6 3rd trimester H/H 10.8/32.2 1hr GTT failed 177 3hr GTT failed /4- 81, 142, 165, 147 Pap smear NILM December 2021 Review of Systems Const: Denies: fever(s) or chills Card: Denies: chest pain or palpitations Resp: Denies: dyspnea, productive cough or non-productive cough : Denies: genital lesions Medications/Allergies Home Medications Medication Instructions Recorded Confirmed Last Taken Type cholecalciferol (vitamin D3) 50 50 mcg PO DAILY 04/01/20 12/12/22 12/11/22 History mcg (2,000 unit) tablet (Vitamin D3) epinephrine 0.3 mg/0.3 mL See Rx Instructions .Route .COMPLEX 04/01/20 12/12/22 2 Years Ago History injection, auto-injector (EpiPen) ~12/12/20 hydroxyzine HCl 10 mg/5 mL oral 10 mg PO PRN PRN itching/hives 04/01/20 12/12/22 11/21/22 History solution epinephrine 0.3 mg/0.3 mL 0.3 mg (0.3 mL) IM Q10M PRN 01/24/21 12/12/22 2 Years Ago Rx injection, auto-injector (EpiPen anaphylaxis #1 ea ~12/12/20 2-Jim) 1 tab PO DAILY 12/12/22 12/12/22 12/11/22 History Allergies Allergy/AdvReac Type Severity Reaction Status Date / Time chicken derived Allergy ALGY-Anaphy Verified 02/27/23 04:57 laxis epinephrine Allergy ALGY-Difficulty Verified 02/27/23 04:57 Breathing red (food color) Allergy Unknown Verified 02/27/23 04:57 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 PFSH: Medical History No pertinent family history Surgical History No pertinent past surgical history History History History 1 Term 0 0 Miscarriages/Ectopic 0 Living Children 0 Vitals/I&O/Wt Last Vital Signs Pulse 86 02/27/23 06:50 Resp 16 02/27/23 04:58 BP 128/82 02/27/23 06:50 O2 Del Method Room Air 02/27/23 04:45 Weight last 48 hrs Weight 212 lb Physical Exam Const: COMMON NORMALS: no acute distress, healthy appearing and alert Resp: COMMON NORMALS: normal respiratory effort, No retractions, No use of accessory muscles and clear to auscultation bilaterally Cardio: COMMON NORMALS: regular rate, regular rhythm, S1 normal heart sound present, S2 normal heart sound present and No murmurs present (Cardio) Extremity: NARRATIVE EXTREMITY EXAM: trace LE edema bilaterally Data 02/27/23 04:15 A&P Assessment and plan (1) Term : (2) Gestational diabetes: Plan 27 year old female at 40w2d by LMP c/w 6 wk US with gestational diabetes- diet controlled and PMHx severe chicken allergy presenting for labor induction elective at term. Admit for induction of labor. Start with cytotec dose x 1. Routine CBC. Glucose check normal this morning- may check as needed. Fetanyl protocol. Desires epidural- discussed waiting until 3-4cm. GBS ppx not indicated due to GBS negative. EFM- may be intermittent initially if Category 1 FHT. Attestations Medical Necessity Statement*: [facility] hospital stay will require greater than 2 midnights for labor and delivery and care. Coding Level of Care Code Acute Code for Chg Fwd Diagnoses Term Z34.90 Gestational diabetes O24.419
[2023-02-27 09:30] LABS: Glucose Point of Care 75 mg/dL (70-110)
[2023-02-27 17:03] LABS: Glucose Point of Care 72 mg/dL (70-110)
[2023-02-28] VITALS (115 sets, daily range): BP systolic 99–161; BP diastolic 55–94; PULSE 71–126; RESP 15–18; TEMP 36.1–37; O2SAT 98–100
[2023-02-28] MEDS: dextrose 5%-lactated ringers 1,000 ML 125 ML IV ×3 (02:24→20:45)
[2023-02-28] MEDS: acetaminophen 325 mg Tablet 650 MG PO (07:51)
[2023-02-28] MEDS: hyDROXYzine 25 mg Capsule 50 MG PO (07:51)
[2023-02-28] MEDS: fentaNYL 50 mcg/mL INJ 2mL IVP (07:52)
[2023-02-28 09:17] LABS: Glucose Point of Care 85 mg/dL (70-110)
[2023-02-28] MEDS: lactated ringers 1,000 ML 999 ML IV ×2 (10:24→11:26)
--- NOTE | 2023-02-28 11:24 | ANES.PREANE2 ---
Pre-Anesthetic Assessment Height/Weight: Height 1.57 m Weight 96.162 kg Temp Pulse Resp BP Pulse Ox O2 Del Method 96.9 F L 103 H 18 138/70 100 Room Air 02/28/23 08:19 02/28/23 11:21 02/28/23 08:19 02/28/23 11:21 02/28/23 11:17 02/28/23 02:30 Epidural Familial anesthetic complications: None Was Beta Ajay taken within 24 hours: N/A Was Clonidine taken within 24 hours: N/A Social No alcohol and No tobacco Exam alert, oriented x 3, clear to auscultation bilaterally and regular rate & rhythm Airway Mallampati: Class II Dentition: full Metabolic Diabetes Mellitus and Morbid Obesity Anesthetic Plan ASA status: 3 Anesthesia: Regional (specify below) Risk of > 500 ml blood loss (7ml/kg in children): Yes, adequate IV access and fluids planned Medications/Allergies Home Medications Medication Instructions Recorded Confirmed Last Taken Type cholecalciferol (vitamin D3) 50 50 mcg PO DAILY 04/01/20 12/12/22 12/11/22 History mcg (2,000 unit) tablet (Vitamin D3) epinephrine 0.3 mg/0.3 mL See Rx Instructions .Route .COMPLEX 04/01/20 12/12/22 2 Years Ago History injection, auto-injector (EpiPen) ~12/12/20 hydroxyzine HCl 10 mg/5 mL oral 10 mg PO PRN PRN itching/hives 04/01/20 12/12/22 11/21/22 History solution epinephrine 0.3 mg/0.3 mL 0.3 mg (0.3 mL) IM Q10M PRN 01/24/21 12/12/22 2 Years Ago Rx injection, auto-injector (EpiPen anaphylaxis #1 ea ~12/12/20 2-Jim) 1 tab PO DAILY 12/12/22 12/12/22 12/11/22 History Allergies Allergy/AdvReac Type Severity Reaction Status Date / Time chicken derived Allergy ALGY-Anaphy Verified 02/27/23 04:57 laxis epinephrine Allergy ALGY-Difficulty Verified 02/27/23 04:57 Breathing red (food color) Allergy Unknown Verified 02/27/23 04:57 Current Medications Generic Name Dose Route Start Last Admin Trade Name Freq PRN Reason Stop Dose Admin Acetaminophen 650 mg 02/27/23 04:27 02/28/23 07:51 Acetaminophen 325 Mg Tablet PO 650 mg Q6H PRN Administration Mild pain or temp > 100.4 Fentanyl 25 - 100 mcg 02/27/23 04:41 02/28/23 07:52 Fentanyl 50 Mcg/Ml Inj 2ml IVP 25 mcg Q1H PRN Administration SEVERE PAIN Hydroxyzine Pamoate 50 mg 02/27/23 04:27 02/28/23 07:51 Hydroxyzine 25 Mg Capsule PO 50 mg QID PRN Administration sleep, agitation or itching Dextrose/Lactated Ringer's 1,000 mls @ 125 mls/hr 02/27/23 04:30 02/28/23 10:25 Dextrose 5%-Lactated Ringers IV Infused .Q8H VICTOR M Infusion Oxytocin 30 unit/ Sodium 503 mls @ 1 mls/hr 02/28/23 02:00 02/28/23 10:00 Chloride IV 15 mls/hr .Q24H VICTOR M 15 mls/hr Titration Protocol Lactated Ringer's 1,000 mls @ 999 mls/hr 02/28/23 10:08 02/28/23 10:24 Lactated Ringers IV 999 mls/hr .Q1H1M PRN Administration See label comments PFSH Anesthesia Medical History No pertinent family history Surgical History No pertinent past surgical history Female Reproductive History : 1 Data Anesthesia 02/27/23 04:15 Short CBC 02/27/23 Range/Units 04:15 WBC 8.9 (4.0-10.0) 10^3/uL Hgb 11.0 L (11.5-15.3) g/dL Hct 34.1 L (37.0-47.0) % MCV 77.7 L (81-99) fl Plt Count 204 (130-400) 10^3/cmm Neut % (Auto) 65.7 % Neut # (Auto) 5.82 (1.8-7.7) 10^3/uL Cardiac Studies: No Data to Display
--- NOTE | 2023-02-28 11:25 | ANES.PROC ---
Anesthesia Procedures Procedure/Date: 02/28/23 Epidural: Time Out Performed: Yes Consents Signed: Procedure Consent Consent: requested by attending/covering physician, from patient, from other, risks and benefits reviewed and patient agrees to proceed Lumbar Level: L3-L4 Epidural position: sitting Epidural procedure: sterile prep of area, 1% lidocaine to numb the area, 18 g needle, negative for paresthesia passed, neg for paresthesia, test dose given, 1.5% xylocaine 1:200k epi (35 ml), 0.2% Ropivacaine bolus ml (5 ml), placed PCEA, no systemic response, sterile dressing applied, L.U.D. no apparent complications and 0.2% Ropiavacaine @ mls/hr (10) Additional Comments: TOM at 5 cm, threaded to 11 cm, patient reported significant decrease in pain of subsequent contractions
[2023-02-28] MEDS: ROPivacaine syringe 100 MG/50 ML SYRINGE 10 MG EPIDURAL ×4 (11:27→23:11)
[2023-02-28 13:06] LABS: Glucose Point of Care 78 mg/dL (70-110)
--- NOTE | 2023-02-28 17:15 | PM.OBGYPN ---
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 Getting some rest. She has been on pitocin since approx 2am. Agreeable to AROM. Labor: Station: -3 Amniotic Membrane Status: Ruptured Monitor Mode: External Contraction Pattern: Irregular Status: Category I Vitals/I&O/Wt Last Vital Signs Temp 97.0 F L 02/28/23 17:50 Pulse 75 02/28/23 22:48 Resp 17 02/28/23 17:50 BP 105/63 02/28/23 22:48 Pulse Ox 100 02/28/23 11:57 O2 Del Method Room Air 02/28/23 02:30 02/28/23 02/28/23 03/01/23 14:59 22:59 06:59 Intake Total 3248.817 / 3248.817 984.333 / 4233.150 Output Total 400 / 400 Balance 3248.817 / 3248.817 584.333 / 3833.150 Weight last 48 hrs Weight 212 lb Physical Exam Const: COMMON NORMALS: no acute distress, healthy appearing and alert Resp: COMMON NORMALS: normal respiratory effort, No retractions, No use of accessory muscles and clear to auscultation bilaterally AUSCULTATION: clear to auscultation bilaterally Cardio: COMMON NORMALS: regular rate, regular rhythm, S1 normal heart sound present, S2 normal heart sound present and No murmurs present (Cardio) RATE: regular rate RHYTHM: regular rhythm HEART SOUNDS: S1 normal heart sound present and S2 normal heart sound present Extremity: NARRATIVE EXTREMITY EXAM: trace LE edema bilaterally Neuro: SENSORIUM/ORIENTATION: Yes alert Urinary Catheter Management: Landeros Latex: Cath Placed During This Visit: yes Reason for Continuing Indwelling Catheter: Acute Urinary Retention or Obstruction Urinary Catheter Date of Insertion: 02/28/23 Urinary Catheter Time of Insertion: 12:02 Data 03/01/23 12:40 A&P Assessment and plan (1) Term : (2) Gestational diabetes: Plan 27 year old female at 40w3d by LMP c/w 6 wk US with gestational diabetes- diet controlled and PMHx severe chicken allergy admitted for induction of labor at term. On pitocin low dose- earlier with episode of significant decelerations and pitocin was stopped. Decelerations resolved with intervention and FHT Category 1. Restarted pitocin at low-dose. AROM this evening with amnihook with clear fluid. Discussed risks and benefits prior and Mariangel agreeable to AROM. Mother and baby tolerated procedure well. Continue pitocin, position changes. Anticipate . Attestations Medical Necessity Statement*: Mariangel Ortega's hospital stay will require greater than 2 midnights for labor and delivery and care. Coding Level of Care Code Acute Code for Chg Fwd Diagnoses Term Z34.90 Gestational diabetes O24.419
[2023-02-28 17:54] LABS: Glucose Point of Care 80 mg/dL (70-110)
[2023-02-28 21:35] LABS: Glucose Point of Care 73 mg/dL (70-110)
[2023-03-01] VITALS (133 sets, daily range): BP systolic 59–162; BP diastolic 34–97; PULSE 65–142; RESP 16–20; TEMP 36.6–36.8; O2SAT 79–100
[2023-03-01] MEDS: ROPivacaine syringe 100 MG/50 ML SYRINGE 10 MG EPIDURAL (02:32)
[2023-03-01] MEDS: dextrose 5%-lactated ringers 1,000 ML 125 ML IV (04:23)
[2023-03-01] MEDS: miSOPROStol 200 mcg Tablet 800 MCG PR (06:47)
[2023-03-01] MEDS: lidocaine 2% INJ 20 mL INJECTION (06:51)
--- NOTE | 2023-03-01 07:40 | PM.DELIVERY ---
Delivery Note: Date of delivery: March 01, 2023 Pre-delivery diagnoses: Term Gestational diabetes?diet controlled Post-delivery diagnoses: Term delivery of viable male Procedure: Spontaneous vaginal delivery Delivering Physician: Jackelyn Echevarria DO Estimated blood loss (mL): 500 Pre-Delivery Course: Admitted for induction. Given 3 dose Cytotec every 4 hours without significant dilation. Low-dose Pitocin started with progression to SVE of 3.5/70/-3. Epidural anesthesia obtained at patient request. AROM performed at 17:19 on 02/28/23 with moderate amount of clear fluid noted. Progressed following appropriately to complete. Delivery: Patient progressed to complete. Patient placed in lithotomy position. Patient pushed with adequate effort. Head delivered in PATRIC position, no nuchal cord was present. Shoulders and rest of body delivered without difficulty with epidural anesthesia. Mouth and nares bulb suctioned. Cord clamped and cut after 1 minute delay. Infant placed maternal abdomen. Placenta spontaneously delivered and intact. Pitocin started. Fundus was noted to be firm. The vagina and cervix were inspected and right first-degree and left labial lacerations were noted. Repaired with 3-0 Vicryl suture. Additional lidocaine given for anesthesia approximately 8 mL of lidocaine 2%. Fundus was again noted to be firm however with steady trickle. Given 800 mcg Cytotec NE. Fundus noted to be firm with minimal bleeding. Male born at 6:37 AM with 8/9 weighing 8 pounds 13 ounces and measuring 21.5 in length Placenta noted to be intact with centrally inserted umbilical cord and three-vessel cord. Complications: Maternal none Infant none History History History 1 Term 0 0 Miscarriages/Ectopic 0 Living Children 0 Coding Level of Care Code Acute Code for Chg Fwd Diagnoses
[2023-03-01] MEDS: ibuprofen 800 mg tablet PO ×3 (09:01→20:41)
[2023-03-01] MEDS: prenatal vitamin Capsule 1 CAP PO (09:01)
[2023-03-01] MEDS: benzocaine-menthol 78 gm Canister 1 SPRAY TOPICAL (09:02)
[2023-03-01] MEDS: lanolin oint 7 gm 1 APPLIC TOPICAL (09:02)
--- NOTE | 2023-03-01 09:28 | PC.NURSE ---
Call to Dr. Echevarria to report hypotensive, tachycardic, and pale and nausea. Reported IV bolus has been started and pt is in trendelenburg. Reported fundus has been firm and bleeding has been WNL. Reported pt appears to have a hematoma. Received order for one unit of blood and Dr. Echevarria is on her way in. 930 Dr. Echevarria called while on her way in to give orders to start TXA. Also reported that a CBC was drawn.
[2023-03-01] MEDS: ondansetron 2 mg/ML SDV 2 mL 4 MG IVP (09:30)
[2023-03-01] MEDS: lactated ringers 1,000 ML 999 ML IV (09:30)
[2023-03-01 09:47] LABS: Basophils # 0.1 10^3/uL (0.0-0.1); Basophils % 0.3 %; Eosinophils % 0.1 %; Hematocrit 26.2 % (37.0-47.0); Hemoglobin 8.2 g/dL (11.5-15.3); Lymphocytes # 1.3 10^3/uL (0.8-4.8); Mean Corpuscular HGB Conc 31.3 g/dL (30.0-36.0); Mean Corpuscular Hemoglobin 24.8 pg (28.0-34.0); Mean Corpuscular Volume 79.2 fl (81-99); Mean Platelet Volume 12.1 fL (7.4-10.4); Monocytes # 0.8 10^3/uL (0.2-0.9); Monocytes % 4.9 %; Neutrophils # 13.73 10^3/uL (1.8-7.7); Neutrophils % 85.6 %; Nucleated Red Blood Cells % 0 %; Platelet Count 215 10^3/cmm (130-400); Red Blood Count 3.31 10^6/uL (4.1-5.3); Red Cell Distribution Width 15.3 % (12.1-15.1)
[2023-03-01] MEDS: methylergonovine 0.2 mg/mL INJ 1 mL IM (09:52)
[2023-03-01] MEDS: fentaNYL 50 mcg/mL INJ 2mL IVP (10:00)
[2023-03-01] MEDS: oxytocin 30 UNIT/500 ML BAG 999 UNIT IV (10:03)
--- NOTE | 2023-03-01 10:23 | PC.NURSE ---
emergency release O NEG blood verified by Leida Darnell RN and Vilma Olivo RN. Transfusion started at 0958 and started at 50mL/hr. VS continuously monitored and documented in chart. Initial temp 98.4. Temp at 1009 98.5 and infusion increased to 240 mL/hr. TAINA and MD at bedside continuously.
--- NOTE | 2023-03-01 10:34 | PM.OBGYPN ---
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 RN reports BP 50s/30s, HR 130s and patient feeling lightheaded. Reports bleeding is ok and fundus firm however patient is symptomatic. RN reports currently starting bolus of IV fluids and patient in Trendelenburg position. Orders given for dose TXA, order 1 unit PRBC STAT, continue bolus and I began en route to hospital. On arrival patient pale appearing however alert and responsive. HR now 110s with repeat BP on arrival 101/60. Orders given for 2nd IV to be started. On fundal massage- multiple clots and moderate bleeding noted. Orders given for dose methergine and 2nd bag pitocin once TXA is complete. At that time uterine sweep performed with expression of additional clots and bleeding. Due to patient intolerance of exam a dose of fentanyl was given after BPs improved to 110s/70s and 2nd uterine sweep performed with expression of smaller amount of clots. Due to patient discomfort further attempts were not made. Following bleeding noted to decrease and fundus noted to continue to be firm. Blood transfusion started with good patient response. BPs and HR improved. Vitals/I&O/Wt Last Vital Signs Temp 97.0 F L 02/28/23 17:50 Pulse 96 03/01/23 10:30 Resp 16 02/28/23 21:00 BP 116/70 03/01/23 10:30 Pulse Ox 97 03/01/23 10:30 O2 Del Method Room Air 02/28/23 02:30 02/28/23 03/01/23 03/01/23 22:59 06:59 14:59 Intake Total 991.333 / 4240.150 1234.334 / 5474.484 1148.833 / 1148.833 Output Total 400 / 400 400 / 800 Balance 591.333 / 3840.150 834.334 / 4674.484 1148.833 / 1148.833 Physical Exam Const: COMMON NORMALS: no acute distress OTHER: She is alert and easily responsive however appears tired and pale Resp: COMMON NORMALS: normal respiratory effort, No retractions, No use of accessory muscles and clear to auscultation bilaterally AUSCULTATION: clear to auscultation bilaterally Cardio: COMMON NORMALS: S1 normal heart sound present, S2 normal heart sound present and No murmurs present (Cardio) HEART SOUNDS: S1 normal heart sound present and S2 normal heart sound present OTHER: Elevated heart rate, regular rate peripheral pulses 2+ in all 4 extremities : OTHER: Uterine fundus firm and at the umbilicus On uterine sweep large passage of clots noted x 2 Extremity: NARRATIVE EXTREMITY EXAM: trace LE edema bilaterally Urinary Catheter Management: Landeros Latex: Cath Placed During This Visit: yes, but has since been removed by the nurse Reason for Continuing Indwelling Catheter: Accurate Measurement of Urinary Output in Critically Ill Patients Urinary Catheter Date of Insertion: 02/28/23 Urinary Catheter Time of Insertion: 12:02 Date Urinary Catheter Removed: 03/01/23 Time Urinary Catheter Discontinued: 04:04 Data 03/01/23 12:40 A&P Assessment and plan (1) hemorrhage: EBL + QBL approx 1,670 total as of approx 11am Given 800mcg cytotec at delivery along with routine pitocin approx 30 units. At time of hemorrhage received additional 30 units pitocin, 0.2 mg methergine, 1000mg TXA along with LR bolus and 1 unit PRBC. STAT CBC with Hgb 8.2. Plan for post-transfusion CBC 30 minutes after completion of transfusion. Vital signs have stabilized. Discussed plan for fundal massage and monitor for further bleeding and vital sign changes. Update approx 2:30pm- post transfusion Hgb 8.8 and vital signs have continued to be stable with improvement in patient symptoms and minimal bleeding. Attestations Medical Necessity Statement*: [facility]'s hospital stay will require greater than 2 midnights for labor and delivery and care. Coding Level of Care Code Acute Code for Chg Fwd Diagnoses hemorrhage O72.1
[2023-03-01 12:54] LABS: Basophils % 0.3 %; Hematocrit 27.7 % (37.0-47.0); Hemoglobin 8.8 g/dL (11.5-15.3); Lymphocytes % 7.3 %; Mean Corpuscular HGB Conc 31.8 g/dL (30.0-36.0); Mean Corpuscular Hemoglobin 25.4 pg (28.0-34.0); Mean Corpuscular Volume 79.8 fl (81-99); Mean Platelet Volume 11.5 fL (7.4-10.4); Monocytes # 0.6 10^3/uL (0.2-0.9); Monocytes % 4.4 %; Neutrophils # 12.13 10^3/uL (1.8-7.7); Neutrophils % 87.4 %; Nucleated Red Blood Cells % 0 %; Platelet Count 154 10^3/cmm (130-400); Red Blood Count 3.47 10^6/uL (4.1-5.3); Red Cell Distribution Width 15.8 % (12.1-15.1); White Blood Count 13.9 10^3/uL (4.0-10.0)
[2023-03-01 19:15] LABS: Hematocrit 24.3 % (37.0-47.0); Hemoglobin 7.7 g/dL (11.5-15.3); Mean Corpuscular HGB Conc 31.7 g/dL (30.0-36.0); Mean Corpuscular Hemoglobin 25.4 pg (28.0-34.0); Mean Corpuscular Volume 80.2 fl (81-99); Platelet Count 160 10^3/cmm (130-400); Red Blood Count 3.03 10^6/uL (4.1-5.3); Red Cell Distribution Width 15.9 % (12.1-15.1); White Blood Count 12.9 10^3/uL (4.0-10.0)
[2023-03-01 19:25] LABS: Alanine Aminotransferase 7 U/L (0-33); Albumin Level 2.4 g/dL (3.5-5.2); Alkaline Phosphatase 122 U/L (35-105); Anion Gap 13.2 (5-19); Aspartate Amino Transferase 19 U/L (0-32); Blood Urea Nitrogen 10 mg/dL (6-20); Calcium 7.8 mg/dL (8.5-10.5); Carbon Dioxide 20 mmol/L (22-29); Chloride 111 mmol/L (98-107); Globulin 2.2 g/dL (1.3-4.6); Glomerular Filtration Rate 99.6 mL/min (90-130); Glucose 116 mg/dL (65-115); Osmolality Calculated 290 mOsm/kg (285-295); Potassium 4.2 mmol/L (3.5-5.1); Sodium 140 mmol/L (136-145); Total Bilirubin 0.2 mg/dL (0.15-1.2); Total Protein 4.6 g/dL (6.6-8.7)
[2023-03-02] MEDS: acetaminophen 325 mg Tablet 650 MG PO ×2 (02:43→11:45)
[2023-03-02 05:00] VITALS: BP 107/71; PULSE 92; RESP 18; TEMP 36.6; TEMP 36.7; O2SAT 95
[2023-03-02 06:16] LABS: Basophils % 0.3 %; Eosinophils # 0.1 10^3/uL (0.0-0.8); Eosinophils % 1.2 %; Hematocrit 22.7 % (37.0-47.0); Hemoglobin 7.1 g/dL (11.5-15.3); Lymphocytes # 2.4 10^3/uL (0.8-4.8); Lymphocytes % 24.3 %; Mean Corpuscular HGB Conc 31.3 g/dL (30.0-36.0); Mean Corpuscular Hemoglobin 25.5 pg (28.0-34.0); Mean Corpuscular Volume 81.7 fl (81-99); Monocytes # 0.5 10^3/uL (0.2-0.9); Monocytes % 5.1 %; Neutrophils # 6.64 10^3/uL (1.8-7.7); Neutrophils % 67.9 %; Nucleated Red Blood Cells % 0 %; Platelet Count 166 10^3/cmm (130-400); Red Blood Count 2.78 10^6/uL (4.1-5.3); Red Cell Distribution Width 15.9 % (12.1-15.1); White Blood Count 9.8 10^3/uL (4.0-10.0)
--- NOTE | 2023-03-02 07:36 | ANE.PACU2 ---
Inpatient post-anesthesia follow up: Airway intact: Yes Vital signs: Temperature 98.0 F Pulse Rate 92 Respiratory Rate 18 Blood Pressure 107/71 Pulse Oximetry 95 Oxygen Delivery Me thod Room Air Oxygen Flow Rate Fraction of Inspir ed Oxygen Hydration adequate: Yes Nausea and vomiting: No Pain level: 1 Mental status: Baseline
--- NOTE | 2023-03-02 07:40 | PM.OBGYPN ---
[employer] Subjective Subjective: Interval history: She has been doing well overnight. Does report some fatigue. She has gotten up to the bathroom multiple times overnight however did require assistance. She has been voiding without difficulty. She does report some low back pain that comes and goes depending on what position she is sitting in. She does have some vaginal soreness but no sharp pains and no continuous pressure sensation. She has been breast-feeding well. Reports bleeding is decreasing and about the amount of her usual menses. Denies any passage of large clots. Denies leg pain. She has been eating well and tolerating a normal diet. Denies nausea or vomiting. She does report some right ear pain that has been coming and going?reports it seems somewhat positional when she lays on her right side. Vitals/I&O/Wt Last Vital Signs Temp 98.0 F 03/02/23 05:00 Pulse 92 03/02/23 05:00 Resp 18 03/02/23 05:00 BP 107/71 03/02/23 05:00 Pulse Ox 95 03/02/23 05:00 O2 Del Method Room Air 03/02/23 05:00 03/01/23 03/02/23 03/02/23 22:59 06:59 14:59 Intake Total 500 / 3823.132 350 / 4173.132 Output Total 1700 / 1700 Balance -1200 / 2123.132 350 / 2473.132 Physical Exam Const: COMMON NORMALS: no acute distress, healthy appearing and alert Resp: COMMON NORMALS: normal respiratory effort, No retractions, No use of accessory muscles and clear to auscultation bilaterally AUSCULTATION: clear to auscultation bilaterally Cardio: COMMON NORMALS: regular rate, regular rhythm, S1 normal heart sound present, S2 normal heart sound present and No murmurs present (Cardio) RATE: regular rate RHYTHM: regular rhythm HEART SOUNDS: S1 normal heart sound present and S2 normal heart sound present : OTHER: Uterine fundus is firm and at the umbilicus. Extremity: NARRATIVE EXTREMITY EXAM: trace LE edema bilaterally, no calf tenderness bilaterally. Neuro: SENSORIUM/ORIENTATION: Yes alert Urinary Catheter Management: Landeros Latex: Cath Placed During This Visit: yes, but has since been removed by the nurse Reason for Continuing Indwelling Catheter: Accurate Measurement of Urinary Output in Critically Ill Patients Urinary Catheter Date of Insertion: 02/28/23 Urinary Catheter Time of Insertion: 12:02 Date Urinary Catheter Removed: 03/01/23 Time Urinary Catheter Discontinued: 04:04 Data 03/02/23 08:42 03/01/23 18:50 A&P Assessment and plan (1) Spontaneous vaginal delivery: PPD #1 s/p spontaneous vaginal delivery at term. hemorrhage as below. Encourage ambulation, may shower when able to ambulate freely without assistance. Normal diet. Repeat hemoglobin in the morning. May consider discharge home tomorrow if hemoglobin is stable and meeting discharge milestones appropriately. (2) hemorrhage: EBL + QBL approx 1,670 total as of approx 11am on 03/01/23 Given 800mcg cytotec at delivery along with routine pitocin approx 30 units. At time of hemorrhage received additional 30 units pitocin, 0.2 mg methergine, 1000mg TXA along with LR bolus and 1 unit PRBC. Received 2nd unit PRBC yesterday evening. Hgb trend has been 8.2>>8.8>>7.7>>7.1>>7.9. Most recent hemoglobin of 7.9 obtained approximately 2 hours after hemoglobin of 7.1. Suspect erroneous or falsely lowered hemoglobin at the 7.1. Her vital signs have been stable and her symptoms have been improved. Continue to monitor bleeding and vital signs per protocol. (3) Gestational diabetes: Diet controlled during . Planned for retesting outpatient. To resume normal diet at this time. Attestations Medical Necessity Statement*: [facility]'s hospital stay will require greater than 2 midnights for labor and delivery and care. Coding Level of Care Code Acute Code for Chg Fwd Diagnoses Spontaneous vaginal delivery O80 hemorrhage O72.1 Gestational diabetes O24.419
[2023-03-02] MEDS: prenatal vitamin Capsule 1 CAP PO (08:52)
[2023-03-02] MEDS: ibuprofen 800 mg tablet PO ×3 (08:52→21:59)
[2023-03-02 08:59] LABS: Basophils # 0.1 10^3/uL (0.0-0.1); Basophils % 0.5 %; Eosinophils # 0.2 10^3/uL (0.0-0.8); Eosinophils % 1.5 %; Hematocrit 24.7 % (37.0-47.0); Hemoglobin 7.9 g/dL (11.5-15.3); Lymphocytes # 2.7 10^3/uL (0.8-4.8); Lymphocytes % 25.6 %; Mean Corpuscular Volume 81.3 fl (81-99); Monocytes # 0.5 10^3/uL (0.2-0.9); Monocytes % 4.7 %; Neutrophils # 6.92 10^3/uL (1.8-7.7); Neutrophils % 66.6 %; Nucleated Red Blood Cells % 0 %; Platelet Count 176 10^3/cmm (130-400); Red Blood Count 3.04 10^6/uL (4.1-5.3); Red Cell Distribution Width 15.9 % (12.1-15.1); White Blood Count 10.4 10^3/uL (4.0-10.0)
[2023-03-02 09:05] LABS: INR 0.95 (0.8-1.2)
[2023-03-02 09:06] LABS: Fibrinogen 485 mg/dL (174-498); Partial Thromboplastin Time 25.5 SECONDS (23.9-36.7)
[2023-03-02 09:08] VITALS: BP 118/78; PULSE 98; RESP 15; O2SAT 96
[2023-03-02 16:00] VITALS: BP 133/89; PULSE 99; TEMP 36.7; O2SAT 97
[2023-03-02 22:21] VITALS: BP 121/80; PULSE 93; RESP 16; TEMP 37.2; O2SAT 98
[2023-03-03 04:12] VITALS: BP 123/74; PULSE 91; RESP 16; TEMP 37.1; O2SAT 98
[2023-03-03 06:23] LABS: Basophils % 0.4 %; Eosinophils # 0.2 10^3/uL (0.0-0.8); Eosinophils % 2.9 %; Hematocrit 21.9 % (37.0-47.0); Lymphocytes # 2.6 10^3/uL (0.8-4.8); Lymphocytes % 33.4 %; Mean Corpuscular Hemoglobin 26.1 pg (28.0-34.0); Mean Corpuscular Volume 81.7 fl (81-99); Mean Platelet Volume 10.8 fL (7.4-10.4); Monocytes # 0.4 10^3/uL (0.2-0.9); Monocytes % 4.7 %; Neutrophils # 4.35 10^3/uL (1.8-7.7); Nucleated Red Blood Cells % 0 %; Platelet Count 176 10^3/cmm (130-400); Red Blood Count 2.68 10^6/uL (4.1-5.3); Red Cell Distribution Width 16.3 % (12.1-15.1); White Blood Count 7.6 10^3/uL (4.0-10.0)
--- NOTE | 2023-03-03 08:04 | US_ITS ---
WS: [id number] US pelvic complete* [id number] HISTORY: hemorrhage, decreasing hemoglobin, by 2 days. COMPARISON: None available. Uterus: 17.5 cm x 10.3 cm x 8.4 cm. The uterus is markedly enlarged but appropriate for the patient's recent state. Mild heter ogeneity throughout the myometrium. The shape of the uterus is consistent with the recent status. Endometrium: 2.4 cm. Thickened heterogeneous endometrium. No increased vascularity is identified. Romina ropriate for the recent state. Right ovary: 3.0 cm x 2.4 cm x 1.3 cm. Normal size and vascularity, no cystic or solid masses. Left ovary: 4.5 cm x 4.5 cm x 2.9 cm. Normal size and vascularity, no cystic or solid masses. No free fluid in the cul-de-sac. No blood identified within the cul-de-sac or pelvis. Numerous gallstones are noted within the gallbladder. IMPRESSION: 1. Enlarged heterogeneous uterus with thickened endometrium. These findings are consistent with the r ecent state. If vaginal bleeding persists or there is concern for endometritis additional imaging can be performed. At this time the uterus and endometrium appear appropriate. 2. Cholelithiasis.
[2023-03-03] MEDS: acetaminophen 325 mg Tablet 650 MG PO ×2 (09:45→16:12)
[2023-03-03] MEDS: prenatal vitamin Capsule 1 CAP PO (09:45)
[2023-03-03 09:50] VITALS: BP 133/85; PULSE 101; TEMP 37.1; O2SAT 97
[2023-03-03] MEDS: polyethylene glycol 3350 Pkt 17 gm PO ×2 (10:11→19:00)
[2023-03-03 12:04] LABS: Basophils % 0.5 %; Eosinophils # 0.2 10^3/uL (0.0-0.8); Eosinophils % 2.8 %; Hematocrit 23.6 % (37.0-47.0); Hemoglobin 7.5 g/dL (11.5-15.3); Lymphocytes % 23.2 %; Mean Corpuscular HGB Conc 31.8 g/dL (30.0-36.0); Mean Corpuscular Hemoglobin 25.7 pg (28.0-34.0); Mean Corpuscular Volume 80.8 fl (81-99); Mean Platelet Volume 10.6 fL (7.4-10.4); Monocytes # 0.3 10^3/uL (0.2-0.9); Monocytes % 3.4 %; Neutrophils # 5.88 10^3/uL (1.8-7.7); Nucleated Red Blood Cells % 0 %; Platelet Count 192 10^3/cmm (130-400); Red Blood Count 2.92 10^6/uL (4.1-5.3); Red Cell Distribution Width 16.4 % (12.1-15.1); White Blood Count 8.5 10^3/uL (4.0-10.0)
[2023-03-03 16:18] VITALS: BP 124/82; PULSE 88; RESP 17; TEMP 36.9; O2SAT 97
[2023-03-03 16:26] LABS: Basophils % 0.4 %; Eosinophils # 0.2 10^3/uL (0.0-0.8); Eosinophils % 2.9 %; Hematocrit 23.4 % (37.0-47.0); Hemoglobin 7.4 g/dL (11.5-15.3); Lymphocytes # 2.2 10^3/uL (0.8-4.8); Lymphocytes % 29.2 %; Mean Corpuscular HGB Conc 31.6 g/dL (30.0-36.0); Mean Corpuscular Hemoglobin 25.8 pg (28.0-34.0); Mean Corpuscular Volume 81.5 fl (81-99); Mean Platelet Volume 10.6 fL (7.4-10.4); Monocytes # 0.3 10^3/uL (0.2-0.9); Neutrophils # 4.73 10^3/uL (1.8-7.7); Neutrophils % 61.8 %; Nucleated Red Blood Cells % 0 %; Platelet Count 191 10^3/cmm (130-400); Red Blood Count 2.87 10^6/uL (4.1-5.3); Red Cell Distribution Width 16.3 % (12.1-15.1); White Blood Count 7.7 10^3/uL (4.0-10.0)
--- NOTE | 2023-03-03 17:33 | P.DS_ITS ---
Discharge Providers [employer] Date of Admission: 02/27/23 04:27 Date of Discharge: 03/03/23 Attending Provider at Admission: Jackelyn Echevarria DO Attending Provider at Discharge: Jackelyn Echevarria DO Primary Care Provider: Jackelyn Echevarria DO Diagnoses at Discharge Discharge Diagnosis (1) Spontaneous vaginal delivery: Status: Acute (2) hemorrhage: Status: Acute (3) Gestational diabetes: Status: Acute Reason for Visit Reason for Visit: induction-GDM diet controlled Hospital Course Hospital Course Pre-Delivery Course:?? Admitted for induction.? Given 3 doses Cytotec every 4 hours without significant dilation.? Low-dose Pitocin started with progression to SVE of 3.5/70/-3.? Epidural anesthesia obtained at patient request. AROM? performed at 17:19 on 02/28/23 with moderate amount of clear fluid noted. Progressed following appropriately to complete. Delivery:?? Patient progressed to complete. Patient placed in lithotomy position. Patient pushed with adequate effort. Head delivered in PATRIC position, no nuchal cord was present. Shoulders and rest of body delivered without difficulty with epidural anesthesia. Mouth and nares bulb suctioned. Cord clamped and cut after 1 minute delay. Infant placed on maternal abdomen. Placenta spontaneously delivered and intact. Pitocin started. Fundus was noted to be firm. The vagina and cervix were inspected and right first-degree and left labial lacerations were noted.? Repaired with 3-0 Vicryl suture.? Additional lidocaine given for local anesthesia approximately 8 mL of lidocaine 2%. Fundus was again noted to be firm however with steady trickle.? Given 800 mcg Cytotec FL.? Fundus noted to be firm with minimal bleeding following. Male born at 6:37 AM with 8/9 weighing 8 pounds 13 ounces and measuring 21.5 in length Placenta noted to be intact with centrally inserted umbilical cord and three- vessel cord. Complications: Maternal none ? Infant none ? Most recent hemoglobin of 7.9 obtained approximately 2 hours after hemoglobin of 7.1.? Suspect erroneous or falsely lowered hemoglobin at the 7.1.? Her vital signs have been stable and her symptoms have been improved. Continue to monitor bleeding and vital signs per protocol. course: Patient underwent on 03/01/23. course was complicated by hemorrhage approximately 4 hours after delivery. EBL + QBL approx 1,670 total as of approx 11am on 03/01/23. Given 800mcg cytotec at delivery along with routine pitocin approx 30 units. Received additional 30 units pitocin, 0.2 mg methergine, 1000mg TXA along with LR bolus and 2 units PRBCs at the time of and after hemorrhage. Hgb trend has been 8.2>>8.8>>7.7>>7.1>>7.9>>7 .0>>7.5>>7.4. Most recent hemoglobin on day of discharge is 7.4. She is discharged home on iron supplementation BID. Following delivery patient ambulated well, tolerated a normal diet without nausea or vomiting. Pain was well controlled on PO medications, well, no leg/calf pain, no calf/leg swelling, normal urination, passing gas and normal bowel movement. Vaginal bleeding following hemorrhage decreasing and thin lochia. Pelvic US was completed due to decreasing hemoglobin with typical appearance of uterus. Of note patient incidentally found to have gallstones on pelvic ultrasound however asymptomatic throughout course. Signs and symptoms of cholecystitis reviewed with patient. Follow-up planned for [address] Echevarria. Warning signs for endometritis, pre-eclampsia, DVT/PE, mastitis were reviewed, discussed additional warning signs including increased vaginal bleeding, worsening abdominal pain. Pelvic rest and activity precautions reviewed as well. She is discharged on 03/03/23 in stable condition. Information Peripartum Data: Infant Delivery Method: Vaginal Physical Exam Const: COMMON NORMALS: no acute distress, healthy appearing and alert Resp: COMMON NORMALS: normal respiratory effort, No retractions, No use of accessory muscles and clear to auscultation bilaterally AUSCULTATION: clear to auscultation bilaterally Cardio: COMMON NORMALS: regular rate, regular rhythm, S1 normal heart sound present, S2 normal heart sound present and No murmurs present (Cardio) RATE: regular rate RHYTHM: regular rhythm HEART SOUNDS: S1 normal heart sound present and S2 normal heart sound present : OTHER: Uterine fundus is firm and at the umbilicus. Extremity: NARRATIVE EXTREMITY EXAM: trace LE edema bilaterally, no calf tenderness bilaterally. Neuro: SENSORIUM/ORIENTATION: Yes alert Urinary Catheter Management: Landeros Latex: Cath Placed During This Visit: yes, but has since been removed by the nurse Reason for Continuing Indwelling Catheter: Accurate Measurement of Urinary Output in Critically Ill Patients Urinary Catheter Date of Insertion: 02/28/23 Urinary Catheter Time of Insertion: 12:02 Date Urinary Catheter Removed: 03/01/23 Time Urinary Catheter Discontinued: 04:04 History History History 1 Term 0 0 Miscarriages/Ectopic 0 Living Children 0 Discharge Data Studies Completed and Pending Completed Studies During Hospitalization Category Date Time Status US pelvic complete* [id number] Urgent Ultrasound 03/03/23 08:04 Completed Laboratory Results WBC 7.7 10^3/uL (4.0-10.0) 03/03/23 16:20 RBC 2.87 10^6/uL (4.1-5.3) L 03/03/23 16:20 Hgb 7.4 g/dL (11.5-15.3) L 03/03/23 16:20 Hct 23.4 % (37.0-47.0) L 03/03/23 16:20 MCV 81.5 fl (81-99) 03/03/23 16:20 MCH 25.8 pg (28.0-34.0) L 03/03/23 16:20 MCHC 31.6 g/dL (30.0-36.0) 03/03/23 16:20 RDW 16.3 % (12.1-15.1) H 03/03/23 16:20 Plt Count 191 10^3/cmm (130-400) 03/03/23 16:20 MPV 10.6 fL (7.4-10.4) H 03/03/23 16:20 Neut % (Auto) 61.8 % 03/03/23 16:20 Lymph % (Auto) 29.2 % 03/03/23 16:20 [place] % (Auto) 4.0 % 03/03/23 16:20 Eos % (Auto) 2.9 % 03/03/23 16:20 Baso % (Auto) 0.4 % 03/03/23 16:20 Neut # (Auto) 4.73 10^3/uL (1.8-7.7) 03/03/23 16:20 Lymph # (Auto) 2.2 10^3/uL (0.8-4.8) 03/03/23 16:20 [place] # (Auto) 0.3 10^3/uL (0.2-0.9) 03/03/23 16:20 Eos # (Auto) 0.2 10^3/uL (0.0-0.8) 03/03/23 16:20 Baso # (Auto) 0.0 10^3/uL (0.0-0.1) 03/03/23 16:20 Nucleated RBC % (auto) 0 % 03/03/23 16:20 Nucleated RBCs # 0.0 /100WBC 03/03/23 16:20 PT 13.00 SECONDS (12.1-14.9) 03/02/23 08:42 INR 0.95 (0.8-1.2) 03/02/23 08:42 APTT 25.5 SECONDS (23.9-36.7) 03/02/23 08:42 Fibrinogen 485 mg/dL (174-498) 03/02/23 08:42 Sodium 140 mmol/L (136-145) 03/01/23 18:50 Potassium 4.2 mmol/L (3.5-5.1) 03/01/23 18:50 Chloride 111 mmol/L (98-107) H 03/01/23 18:50 Carbon Dioxide 20 mmol/L (22-29) L 03/01/23 18:50 Anion Gap 13.2 (5-19) 03/01/23 18:50 BUN 10 mg/dL (6-20) 03/01/23 18:50 Creatinine 0.7 mg/dL (0.5-0.9) 03/01/23 18:50 GFR Calculation 99.6 mL/min (90-130) 03/01/23 18:50 Glucose 116 mg/dL (65-115) H 03/01/23 18:50 POC Glucose 73 mg/dL (70-110) 02/28/23 21:32 Calculated Osmolality 290 mOsm/kg (285-295) 03/01/23 18:50 Calcium 7.8 mg/dL (8.5-10.5) L 03/01/23 18:50 Total Bilirubin 0.2 mg/dL (0.15-1.2) 03/01/23 18:50 AST 19 U/L (0-32) 03/01/23 18:50 ALT 7 U/L (0-33) 03/01/23 18:50 Alkaline Phosphatase 122 U/L (35-105) H 03/01/23 18:50 Total Protein 4.6 g/dL (6.6-8.7) L 03/01/23 18:50 Albumin 2.4 g/dL (3.5-5.2) L 03/01/23 18:50 Globulin 2.2 g/dL (1.3-4.6) 03/01/23 18:50 Blood Type AB Positive 02/27/23 04:15 Rho(D) Type Positive 02/27/23 04:15 Antibody Screen Negative 02/27/23 04:15 Crossmatch See Detail 02/27/23 04:15 Vitals Last Vital Signs Temp 98.5 F 03/03/23 16:18 Pulse 88 03/03/23 16:18 Resp 17 03/03/23 16:18 BP 124/82 03/03/23 16:18 Pulse Ox 97 03/03/23 16:18 O2 Del Method Room Air 03/03/23 16:18 Discharge Plan Discharge Patient Disposition: Home Condition: Stable Prescriptions: New ferrous sulfate 325 mg (65 mg iron) tablet,delayed release (DR/EC) 325 mg PO BIDWM Qty: 60 0RF Continued hydroxyzine HCl 10 mg/5 mL solution 10 mg PO PRN PRN (Reason: itching/hives) epinephrine [EpiPen] 0.3 mg/0.3 mL Auto-Injector See Rx Instructions .ROUTE .COMPLEX Rx Instructions: use as directed. cholecalciferol (vitamin D3) [Vitamin D3] 50 mcg (2,000 unit) Tablet 50 mcg PO DAILY epinephrine [EpiPen 2-Jim] 0.3 mg/0.3 mL auto-injector 0.3 mg IM Q10M PRN (Reason: anaphylaxis) Qty: 1 0RF Rx Instructions: do not exceed 3 doses per episode 1 tab PO DAILY No Action Bactrim DS 800-160 mg tablet 1 tab PO DAILY 10 Days Qty: 10 0RF Discharge Orders: Discharge Order (Routine); Ordered 03/03/23 Ordered By: Jackelyn Echevarria Referrals: Jackelyn Echevarria DO [Primary Care Provider] - 03/16/23 2:45 pm Discharge Diet: Regular Discharge Activity: Increase activity as tolerated Patient Instructions: Depression (DC), Perineal Care (DC), Bleeding (DC), Preeclampsia and Eclampsia After Delivery (GEN), COVID-19 and (GEN), Hemorrhage (DC), OB Discharge Report, OB Food/Drug Interaction Guide, OB Care at Home, Opioid Safety, OB Home Care, OB Vaginal Deliveries, Abnormal Bleeding Activity Restrictions/Additional Instructions: Pelvic rest through 6 weeks . Discharge Attestations [employer] Time Spent in Discharge Care*: greater than 30 min Coding Level of Care Code Acute Code for Chg Fwd Diagnoses Spontaneous vaginal delivery O80 hemorrhage O72.1 Gestational diabetes O24.419
[2023-03-03 18:46] VITALS: BP 135/52; PULSE 116; RESP 17; TEMP 37; O2SAT 98
[2023-03-03 19:24] VITALS: BP 135/52; PULSE 116; RESP 17; TEMP 37; O2SAT 98
== END 2023-03-03 19:25 | disposition home or self-care (01) | DRG 806 ==
LOC: OPOB 06:47 → OBGYN 06:47
PROVIDERS: Admitting Provider Family Medicine; PCP Family Medicine; Visit Provider Family Medicine
DX: O48.0 Post-term pregnancy (principal); O72.1 Other immediate postpartum hemorrhage; Z37.0 Single live birth; Z3A.40 40 weeks gestation of pregnancy; O24.420 Gestational diabetes mellitus in childbirth, diet controlled; O99.02 Anemia complicating childbirth; O76 Abnormality in fetal heart rate and rhythm complicating labor and delivery; O70.0 First degree perineal laceration during delivery
CPT/HCPCS: 36415; 36416; 36430; 51702; 59025; 59409; 76856; 80053; 82962; 85025; 85027; 85049; 85384; 85610; 85730; 86850; 86900; 86920; 96372; 96374; 96375; 99211; J2210; J2405; J2590; J2795; J3010; J7040; J7120; J7121; P9016

== ENCOUNTER 2023-03-07 16:45 | Emergency (ER) | payer BC, SELFPAY ==
--- NOTE | 2023-03-07 | USR_ITS ---
[facility] Final Radiology Report Call: [phone] assistance Online chat: [email or web address] Name: EBONY OVALLES Age: 27Years U Date: 03/07/2023 SSN: -- : 1995 Study: US ABDOMEN LTD Requesting Physician: DELFINO JIN Images: 59 Add?l Studies: Provided Clinical History: PROCEDURE INFORMATION: Exam: US Abdomen, Limited; Right Upper Quadrant Exam date and time: 03/07/2023 6:59 PM Age: 27 years old Clinical indication: Abdominal pain; Localized; Right upper quadrant (ruq) TECHNIQUE: Imaging protocol: Real time ultrasound of the abdomen with image documentation. Limited exam focused on the right upper quadrant. COMPARISON: US pelvic complete* [id number] 03/03/2023 8:36 AM FINDINGS: Liver: Normal. No masses. Gallbladder: Shadowing gallstones noted within the gallbladder. There is no gallbladder wall thickening. Biliary ducts: Normal. No stones. No dilation. Pancreas: Poorly visualized due to overlying bowel gas. Right kidney: Right kidney measures 10.8 cm in length. No mass. No hydronephrosis. IMPRESSION: Cholelithiasis without sonographic findings of acute cholecystitis. Thank you for allowing us to participate in the care of your patient. Dictated and Authenticated by: Kevin Mary DO 03/07/2023 7:39 PM Central Time ([place] & [place]) SILVA[place]
--- NOTE | 2023-03-07 | XRR_ITS ---
[facility] Final Radiology Report Call: [phone] assistance Online chat: [email or web address] Name: EBONY OVALLES Age: 27Years U Date: 03/07/2023 MRN: [id number] SSN: -- : 1995 Study: XR CHEST 1 VIEW Requesting Physician: DELFINO JIN Images: 1 PROCEDURE INFORMATION: Exam: XR Chest Exam date and time: 03/07/2023 6:31 PM Age: 27 years old Clinical indication: Cough TECHNIQUE: Imaging protocol: Radiologic exam of the chest. Views: 1 view. COMPARISON: No relevant prior studies available. FINDINGS: Lungs: Unremarkable. No consolidation. Pleural spaces: Unremarkable. No pleural effusion. No pneumothorax. Heart/Mediastinum: Unremarkable. No cardiomegaly. Bones/joints: Unremarkable. Intraperitoneal space: There is no free intraperitoneal air. IMPRESSION: No acute findings. Thank you for allowing us to participate in the care of your patient. Dictated and Authenticated by: Alex Lopez MD 03/07/2023 7:30 PM Central Time ([place] & [place]) [place]
[2023-03-07 16:52] VITALS: BP 138/90; PULSE 94; RESP 18; TEMP 36.5; O2SAT 99; BMI 35.3
[2023-03-07 17:30] VITALS: BP 133/97; PULSE 97; RESP 16; O2SAT 97
--- NOTE | 2023-03-07 18:01 | W.ED.ABDPA2 ---
Documented by User: Homero Frazier DO 03/08/23 06:20 HPI - Abdominal Pain General: Chief Complaint: Abdominal Pain Stated Complaint: recent , chest and abd pain Time Seen by Provider: 03/07/23 17:29 History of Present Illness: 27-year-old female presents to the emergency room with complaints of right upper quadrant abdominal pain radiating around to her back. She had pain after she had eaten she reported the pain is being very intense than it had some belching and it completely resolved she is pain-free at this time. She is day #6 status post vaginal delivery. She has had difficulty with her gallbladder in the past. Took over care pending labs and ultrasound results. 27 years old female presents emergency room with right upper quadrant abdominal pain that started few hours prior to come to the emergency room. She describes the pain as sharp sensation with severity of 7 out of 10 for presents emergency room. Patient further reveals that the pain subsided few hours prior to my examination. Patient is status post day #6 after vaginal delivery. Delivery was complicated by hemorrhage. OBJECTIVE: Cardiovascular: Regular rate and rhythm without murmur Chest: clear to auscultation all cunningham ABDOMEN: Uterus firm below umbilicus nontender EXTREMITIES: Negative Homans ASSESSMENT: day #1 PLAN: Day #6 MD elicited complaint: abdominal pain Pertinent past history: other (Biliary colic) Onset (ago): hour(s) Pain Consistency: intermittent and now resolved Location: RUQ Severity: severe Quality: cramping Radiation: R flank and back Exacerbating factors: eating Relieving factors: other (Eructations) Associated Symptoms: Reports belching, GI cramping, nausea and poor appetite; Denies anorexia, bloating, change in bowel habits, change in stool character, chills, coffee ground emesis, constipation, diarrhea, dyspepsia, dysuria, excessive flatus, fever(s), heartburn, hematochezia, hematuria, hematemesis, fecal incontinence, loose stools, melena, syncope and vomiting Review of Systems Const: Denies: fever(s), chills, fatigue or malaise ENMT: Denies: throat pain, ear or mastoid pain, nasal discharge or nasal congestion Card: Reports: swelling of feet/ankles; Denies: chest pain, palpitations, irregular heart rhythm or syncope Resp: Denies: dyspnea, productive cough or non-productive cough GI: Reports: abdominal pain, nausea, GI cramping and belching; Denies: vomiting, hematemesis, coffee ground emesis, dysphagia, heartburn, early satiety, diarrhea, constipation, bloating, excessive flatus, fecal incontinence, change in bowel habits, change in stool character, hematochezia or melena : Denies: flank pain, dysuria, urinary frequency, urinary urgency or hematuria Skin/Breast: Denies: rash or pruritus PFSH ED PFSH: Medical History Gestational diabetes No pertinent family history Surgical History No pertinent past surgical history Physical Exam Const: COMMON NORMALS: no acute distress GENERAL APPEARANCE: cooperative and comfortable ORIENTATION/CONSCIOUSNESS: Yes awake, Yes oriented to person, Yes oriented to place and Yes oriented to time HENMT: COMMON NORMALS: normocephalic, atraumatic and hearing grossly normal bilaterally HEAD & SCALP: normocephalic and atraumatic Resp: COMMON NORMALS: normal respiratory effort, No retractions, No use of accessory muscles and clear to auscultation bilaterally AUSCULTATION: clear to auscultation bilaterally Cardio: COMMON NORMALS: regular rate, regular rhythm and No murmurs present (Cardio) RATE: regular rate RHYTHM: regular rhythm GI: COMMON NORMALS: Soft to palpation and No hepatosplenomegaly present AUSCULTATION: Yes normoactive bowel sounds PALPATION: Yes Soft to palpation, No Tenderness to palpation present (GI), No Guarding due to palpation present (GI) and Yes No hepatosplenomegaly present Extremity: COMMON NORMALS: normal to inspection, capillary refill normal, no clubbing, cyanosis or edema, no calf tenderness and no pedal edema Neuro: SENSORIUM/ORIENTATION: Yes oriented to person, Yes oriented to place and Yes oriented to time Skin: COMMON NORMALS: no rashes or lesions noted GENERAL SKIN EXAM: no rashes or lesions noted Course Vital Signs: Vital signs: Vital Signs Temperature 97.7 F 03/07/23 20:57 Pulse Rate 84 03/07/23 20:57 Respiratory Rate 16 03/07/23 20:57 Blood Pressure 128/89 03/07/23 20:57 Pulse Oximetry 98 03/07/23 20:57 Oxygen Delivery Me thod Room Air 03/07/23 17:30 MDM - Abdominal Pain Medical Decision Making Care signed out to Dr. Faustin at change of shift. See final notes for diagnosis and disposition. Patient may come to emergency room. I discussed the ultrasound findings with patient and . Patient extensive work-up including CBC, CMP. Patient was monitored for several hours and appropriate examination patient without any pain or tachycardia or signs of any acute distress. Medical Records I reviewed the patient's medical records. Lab Data I reviewed the patient's lab results. 03/07/23 18:10 03/07/23 18:10 Labs/Radiology: Laboratory Results WBC 9.0 10^3/uL (4.0-10.0) 03/07/23 18:10 RBC 3.61 10^6/uL (4.1-5.3) L 03/07/23 18:10 Hgb 9.2 g/dL (11.5-15.3) L 03/07/23 18:10 Hct 29.9 % (37.0-47.0) L 03/07/23 18:10 MCV 82.8 fl (81-99) 03/07/23 18:10 MCH 25.5 pg (28.0-34.0) L 03/07/23 18:10 MCHC 30.8 g/dL (30.0-36.0) 03/07/23 18:10 RDW 16.9 % (12.1-15.1) H 03/07/23 18:10 Plt Count 391 10^3/cmm (130-400) 03/07/23 18:10 MPV 10.1 fL (7.4-10.4) 03/07/23 18:10 Neut % (Auto) 65.1 % 03/07/23 18:10 Lymph % (Auto) 26.4 % 03/07/23 18:10 [place] % (Auto) 4.1 % 03/07/23 18:10 Eos % (Auto) 2.2 % 03/07/23 18:10 Baso % (Auto) 0.2 % 03/07/23 18:10 Neut # (Auto) 5.85 10^3/uL (1.8-7.7) 03/07/23 18:10 Lymph # (Auto) 2.4 10^3/uL (0.8-4.8) 03/07/23 18:10 [place] # (Auto) 0.4 10^3/uL (0.2-0.9) 03/07/23 18:10 Eos # (Auto) 0.2 10^3/uL (0.0-0.8) 03/07/23 18:10 Baso # (Auto) 0.0 10^3/uL (0.0-0.1) 03/07/23 18:10 Nucleated RBC % (auto) 0.2 % 03/07/23 18:10 Nucleated RBCs # 0.0 /100WBC 03/07/23 18:10 Sodium 141 mmol/L (136-145) 03/07/23 18:10 Potassium 4.4 mmol/L (3.5-5.1) 03/07/23 18:10 Chloride 106 mmol/L (98-107) 03/07/23 18:10 Carbon Dioxide 24 mmol/L (22-29) 03/07/23 18:10 Anion Gap 15.4 (5-19) 03/07/23 18:10 BUN 14 mg/dL (6-20) 03/07/23 18:10 Creatinine 0.5 mg/dL (0.5-0.9) 03/07/23 18:10 GFR Calculation 146.9 mL/min (90-130) H 03/07/23 18:10 Glucose 77 mg/dL (65-115) 03/07/23 18:10 Calculated Osmolality 291 mOsm/kg (285-295) 03/07/23 18:10 Calcium 9.5 mg/dL (8.5-10.5) 03/07/23 18:10 Magnesium 2.2 mg/dL (1.7-2.3) 03/07/23 18:10 Total Bilirubin 0.2 mg/dL (0.15-1.2) 03/07/23 18:10 AST 35 U/L (0-32) H 03/07/23 18:10 ALT 39 U/L (0-33) H 03/07/23 18:10 Alkaline Phosphatase 149 U/L (35-105) H 03/07/23 18:10 Total Protein 7.0 g/dL (6.6-8.7) 03/07/23 18:10 Albumin 3.8 g/dL (3.5-5.2) 03/07/23 18:10 Globulin 3.2 g/dL (1.3-4.6) 03/07/23 18:10 Lipase 37 U/L (13-60) 03/07/23 18:10 Urine Color [place] (Yellow) 03/07/23 20:07 Urine Appearance Cloudy (CLEAR) A 03/07/23 20:07 Urine pH 7 (5-7) 03/07/23 20:07 Ur Specific [place] 1.010 (1.005-1.030) 03/07/23 20:07 Urine Protein 1+ (Negative) H 03/07/23 20:07 Urine Glucose (UA) Norm (Normal) 03/07/23 20:07 Urine Ketones Negative (Negative) 03/07/23 20:07 Urine Blood 3+ (Negative) H 03/07/23 20:07 Urine Nitrate Negative (Negative) 03/07/23 20:07 Urine Bilirubin Neg (Negative) 03/07/23 20:07 Urine Urobilinogen Norm mg/dL (Negative) 03/07/23 20:07 Ur Leukocyte Esterase 2+ (Negative) H 03/07/23 20:07 Urine RBC 50-80 /hpf (0-2) H 03/07/23 20:07 Urine WBC 15-25 /hpf (0-5) H 03/07/23 20:07 Ur Squamous Epith Cells 0-4 /hpf (0-5) H 03/07/23 20:07 Amorphous Sediment Not Reportable 03/07/23 20:07 Urine Bacteria 1+ /hpf (NONE) H 03/07/23 20:07 Urine Mucus 1+ /hpf 03/07/23 20:07 Discharge Plan Discharge Patient Disposition: Home Clinical Impression: Biliary colic, Acute cholecystitis, UTI (urinary tract infection) Condition: Stable Prescriptions: New Bactrim DS 800-160 mg tablet 1 tab PO DAILY 10 Days Qty: 10 0RF No Action hydroxyzine HCl 10 mg/5 mL solution 10 mg PO PRN PRN (Reason: itching/hives) epinephrine [EpiPen] 0.3 mg/0.3 mL Auto-Injector See Rx Instructions .ROUTE .COMPLEX Rx Instructions: use as directed. cholecalciferol (vitamin D3) [Vitamin D3] 50 mcg (2,000 unit) Tablet 50 mcg PO DAILY epinephrine [EpiPen 2-Jim] 0.3 mg/0.3 mL auto-injector 0.3 mg IM Q10M PRN (Reason: anaphylaxis) Qty: 1 0RF Rx Instructions: do not exceed 3 doses per episode ferrous sulfate 325 mg (65 mg iron) tablet,delayed release (DR/EC) 325 mg PO BIDWM Qty: 60 0RF 1 tab PO DAILY Discharge Orders: Discharge ED (Routine); Ordered 03/07/23 Ordered By: Felicitas Faustin Referrals: Kaveh Matos DO [Physician] - 4-7 days Jackelyn Echevarria DO [Primary Care Provider] - Discharge Diet: Advance as tolerated Discharge Activity: Resume usual activity Patient Instructions: Abdominal Pain (ED), Opioid Safety, Pain Management Coding Level of Care Code ED Heavy Coil Winder for Chg Fwd Documented by User: Felicitas Faustin MD 03/07/23 20:43 HPI - Abdominal Pain General: Chief Complaint: Abdominal Pain Stated Complaint: recent , chest and abd pain Time Seen by Provider: 03/07/23 17:29 History of Present Illness: Took over care pending labs and ultrasound results. 27 years old female presents emergency room with right upper quadrant abdominal pain that started few hours prior to come to the emergency room. She describes the pain as sharp sensation with severity of 7 out of 10 for presents emergency room. Patient further reveals that the pain subsided few hours prior to my examination. Patient is status post day #6 after vaginal delivery. Delivery was complicated by hemorrhage. OBJECTIVE: Cardiovascular: Regular rate and rhythm without murmur Chest: clear to auscultation all cunningham ABDOMEN: Uterus firm below umbilicus nontender EXTREMITIES: Negative Homans ASSESSMENT: day #1 PLAN: Day #6 Associated Symptoms: Reports nausea; Denies heartburn, hematemesis and vomiting Review of Systems General: Reports: 10 or more systems reviewed and unremarkable except in HPI and below GI: Reports: abdominal pain and nausea; Denies: vomiting, hematemesis, dysphagia, heartburn or early satiety PFSH ED PFSH: Medical History Gestational diabetes No pertinent family history Surgical History No pertinent past surgical history Physical Exam Const: COMMON NORMALS: no acute distress, average body habitus, patient oriented x3, no limitations, healthy appearing, alert and well nourished HENMT: COMMON NORMALS: normocephalic, atraumatic, hearing grossly normal bilaterally, external ears normal, EAC's normal, TM's normal bilaterally, Normal external nose present, Normal nasal mucous membranes and turbinates present, moist oral mucous membranes, oropharynx normal, dentition normal and gingiva normal HEAD & SCALP: normocephalic and atraumatic NOSE: Normal external nose present and Normal nasal mucous membranes and turbinates present EXTERNAL EAR: Yes external ears normal EXTERNAL AUDITORY CANAL: EAC's normal TYMPANIC MEMBRANE: TM's normal bilaterally Neck/C-Spine: COMMON NORMALS: no JVD Chest: COMMONS NORMALS: normal inspection of the chest, normal palpation of entire chest wall, normal inspection of the breasts and normal palpation of the breasts Breast/axilla inspection: Yes normal inspection of the breasts BREAST/AXILLA PALPATION: Yes normal palpation of the breasts Resp: COMMON NORMALS: normal respiratory effort, No retractions, No use of accessory muscles, clear to auscultation bilaterally and percussion normal AUSCULTATION: clear to auscultation bilaterally PERCUSSION: percussion normal Cardio: COMMON NORMALS: no JVD, regular rate, regular rhythm, S1 normal heart sound present, S2 normal heart sound present, No gallops present (Cardio), No clicks present (Cardio), No murmurs present (Cardio), No rub (Cardio) and Peripheral pulses 2+ throughout RATE: regular rate RHYTHM: regular rhythm HEART SOUNDS: S1 normal heart sound present and S2 normal heart sound present PERIPHERAL PULSES: Peripheral pulses 2+ throughout GI: COMMON NORMALS: Normal to inspection, nondistended, normoactive bowel sounds present, Soft to palpation, non-tender, No hepatosplenomegaly present, no masses and no bruits PALPATION: Yes Soft to palpation and Yes No hepatosplenomegaly present Extremity: COMMON NORMALS: normal to inspection, full ROM, capillary refill normal, no joint enlargement, no clubbing, cyanosis or edema, no calf tenderness and no pedal edema Neuro: COMMON NORMALS: patient oriented x3 SENSORIUM/ORIENTATION: Yes alert Skin: COMMON NORMALS: no rashes or lesions noted, no wounds, turgor normal, no jaundice, no petechiae and no mottling GENERAL SKIN EXAM: no rashes or lesions noted and turgor normal Course Vital Signs: Vital signs: Vital Signs Temperature 97.7 F 03/07/23 20:57 Pulse Rate 84 03/07/23 20:57 Respiratory Rate 16 03/07/23 20:57 Blood Pressure 128/89 03/07/23 20:57 Pulse Oximetry 98 03/07/23 20:57 Oxygen Delivery Me thod Room Air 03/07/23 17:30 MDM - Abdominal Pain Medical Decision Making Patient may come to emergency room. I discussed the ultrasound findings with patient and . Patient extensive work-up including CBC, CMP. Patient was monitored for several hours and appropriate examination patient without any pain or tachycardia or signs of any acute distress. Lab Data 03/07/23 18:10 03/07/23 18:10 Labs/Radiology: Laboratory Results WBC 9.0 10^3/uL (4.0-10.0) 03/07/23 18:10 RBC 3.61 10^6/uL (4.1-5.3) L 03/07/23 18:10 Hgb 9.2 g/dL (11.5-15.3) L 03/07/23 18:10 Hct 29.9 % (37.0-47.0) L 03/07/23 18:10 MCV 82.8 fl (81-99) 03/07/23 18:10 MCH 25.5 pg (28.0-34.0) L 03/07/23 18:10 MCHC 30.8 g/dL (30.0-36.0) 03/07/23 18:10 RDW 16.9 % (12.1-15.1) H 03/07/23 18:10 Plt Count 391 10^3/cmm (130-400) 03/07/23 18:10 MPV 10.1 fL (7.4-10.4) 03/07/23 18:10 Neut % (Auto) 65.1 % 03/07/23 18:10 Lymph % (Auto) 26.4 % 03/07/23 18:10 [place] % (Auto) 4.1 % 03/07/23 18:10 Eos % (Auto) 2.2 % 03/07/23 18:10 Baso % (Auto) 0.2 % 03/07/23 18:10 Neut # (Auto) 5.85 10^3/uL (1.8-7.7) 03/07/23 18:10 Lymph # (Auto) 2.4 10^3/uL (0.8-4.8) 03/07/23 18:10 [place] # (Auto) 0.4 10^3/uL (0.2-0.9) 03/07/23 18:10 Eos # (Auto) 0.2 10^3/uL (0.0-0.8) 03/07/23 18:10 Baso # (Auto) 0.0 10^3/uL (0.0-0.1) 03/07/23 18:10 Nucleated RBC % (auto) 0.2 % 03/07/23 18:10 Nucleated RBCs # 0.0 /100WBC 03/07/23 18:10 Sodium 141 mmol/L (136-145) 03/07/23 18:10 Potassium 4.4 mmol/L (3.5-5.1) 03/07/23 18:10 Chloride 106 mmol/L (98-107) 03/07/23 18:10 Carbon Dioxide 24 mmol/L (22-29) 03/07/23 18:10 Anion Gap 15.4 (5-19) 03/07/23 18:10 BUN 14 mg/dL (6-20) 03/07/23 18:10 Creatinine 0.5 mg/dL (0.5-0.9) 03/07/23 18:10 GFR Calculation 146.9 mL/min (90-130) H 03/07/23 18:10 Glucose 77 mg/dL (65-115) 03/07/23 18:10 Calculated Osmolality 291 mOsm/kg (285-295) 03/07/23 18:10 Calcium 9.5 mg/dL (8.5-10.5) 03/07/23 18:10 Magnesium 2.2 mg/dL (1.7-2.3) 03/07/23 18:10 Total Bilirubin 0.2 mg/dL (0.15-1.2) 03/07/23 18:10 AST 35 U/L (0-32) H 03/07/23 18:10 ALT 39 U/L (0-33) H 03/07/23 18:10 Alkaline Phosphatase 149 U/L (35-105) H 03/07/23 18:10 Total Protein 7.0 g/dL (6.6-8.7) 03/07/23 18:10 Albumin 3.8 g/dL (3.5-5.2) 03/07/23 18:10 Globulin 3.2 g/dL (1.3-4.6) 03/07/23 18:10 Lipase 37 U/L (13-60) 03/07/23 18:10 Urine Color [place] (Yellow) 03/07/23 20:07 Urine Appearance Cloudy (CLEAR) A 03/07/23 20:07 Urine pH 7 (5-7) 03/07/23 20:07 Ur Specific [place] 1.010 (1.005-1.030) 03/07/23 20:07 Urine Protein 1+ (Negative) H 03/07/23 20:07 Urine Glucose (UA) Norm (Normal) 03/07/23 20:07 Urine Ketones Negative (Negative) 03/07/23 20:07 Urine Blood 3+ (Negative) H 03/07/23 20:07 Urine Nitrate Negative (Negative) 03/07/23 20:07 Urine Bilirubin Neg (Negative) 03/07/23 20:07 Urine Urobilinogen Norm mg/dL (Negative) 03/07/23 20:07 Ur Leukocyte Esterase 2+ (Negative) H 03/07/23 20:07 Urine RBC 50-80 /hpf (0-2) H 03/07/23 20:07 Urine WBC 15-25 /hpf (0-5) H 03/07/23 20:07 Ur Squamous Epith Cells 0-4 /hpf (0-5) H 03/07/23 20:07 Amorphous Sediment Not Reportable 03/07/23 20:07 Urine Bacteria 1+ /hpf (NONE) H 03/07/23 20:07 Urine Mucus 1+ /hpf 03/07/23 20:07 Discharge Plan Discharge Patient Disposition: Home Clinical Impression: Biliary colic, Acute cholecystitis, UTI (urinary tract infection) Condition: Stable Prescriptions: New Bactrim DS 800-160 mg tablet 1 tab PO DAILY 10 Days Qty: 10 0RF No Action hydroxyzine HCl 10 mg/5 mL solution 10 mg PO PRN PRN (Reason: itching/hives) epinephrine [EpiPen] 0.3 mg/0.3 mL Auto-Injector See Rx Instructions .ROUTE .COMPLEX Rx Instructions: use as directed. cholecalciferol (vitamin D3) [Vitamin D3] 50 mcg (2,000 unit) Tablet 50 mcg PO DAILY epinephrine [EpiPen 2-Jim] 0.3 mg/0.3 mL auto-injector 0.3 mg IM Q10M PRN (Reason: anaphylaxis) Qty: 1 0RF Rx Instructions: do not exceed 3 doses per episode ferrous sulfate 325 mg (65 mg iron) tablet,delayed release (DR/EC) 325 mg PO BIDWM Qty: 60 0RF 1 tab PO DAILY Discharge Orders: Discharge ED (Routine); Ordered 03/07/23 Ordered By: Felicitas Faustin Referrals: Kaveh Matos DO [Physician] - 4-7 days Jackelyn Echevarria DO [Primary Care Provider] - Discharge Diet: Advance as tolerated Discharge Activity: Resume usual activity Patient Instructions: Abdominal Pain (ED), Opioid Safety, Pain Management Coding Level of Care Code ED Heavy Coil Winder for Morgan Andres
[2023-03-07 18:44] VITALS: BP 128/89; PULSE 92; RESP 15; O2SAT 97
[2023-03-07 18:56] LABS: Alanine Aminotransferase 39 U/L (0-33); Albumin Level 3.8 g/dL (3.5-5.2); Alkaline Phosphatase 149 U/L (35-105); Anion Gap 15.4 (5-19); Aspartate Amino Transferase 35 U/L (0-32); Basophils % 0.2 %; Blood Urea Nitrogen 14 mg/dL (6-20); Calcium 9.5 mg/dL (8.5-10.5); Carbon Dioxide 24 mmol/L (22-29); Chloride 106 mmol/L (98-107); Eosinophils # 0.2 10^3/uL (0.0-0.8); Eosinophils % 2.2 %; Globulin 3.2 g/dL (1.3-4.6); Glomerular Filtration Rate 146.9 mL/min (90-130); Glucose 77 mg/dL (65-115); Hematocrit 29.9 % (37.0-47.0); Hemoglobin 9.2 g/dL (11.5-15.3); Lipase 37 U/L (13-60); Lymphocytes # 2.4 10^3/uL (0.8-4.8); Lymphocytes % 26.4 %; Magnesium 2.2 mg/dL (1.7-2.3); Mean Corpuscular HGB Conc 30.8 g/dL (30.0-36.0); Mean Corpuscular Hemoglobin 25.5 pg (28.0-34.0); Mean Corpuscular Volume 82.8 fl (81-99); Mean Platelet Volume 10.1 fL (7.4-10.4); Monocytes # 0.4 10^3/uL (0.2-0.9); Monocytes % 4.1 %; Neutrophils # 5.85 10^3/uL (1.8-7.7); Neutrophils % 65.1 %; Nucleated Red Blood Cells % 0.2 %; Osmolality Calculated 291 mOsm/kg (285-295); Platelet Count 391 10^3/cmm (130-400); Potassium 4.4 mmol/L (3.5-5.1); Red Blood Count 3.61 10^6/uL (4.1-5.3); Red Cell Distribution Width 16.9 % (12.1-15.1); Sodium 141 mmol/L (136-145); Total Bilirubin 0.2 mg/dL (0.15-1.2)
--- NOTE | 2023-03-07 19:01 | W.ED.ABDPA2 ---
HPI - Abdominal Pain General: Chief Complaint: Abdominal Pain Stated Complaint: recent , chest and abd pain Time Seen by Provider: 03/07/23 17:29 History of Present Illness: Took over care pending labs and ultrasound result. This is a 19 years old female with recent vaginal delivery. She presents emergency room today with sudden onset right upper quadrant pain. She described the pain as pressure-like sensation with severity of 8 out of 10 upon present emergency room. Upon my reassessment Associated Symptoms: Reports nausea; Denies heartburn, hematemesis and vomiting Review of Systems General: Reports: 10 or more systems reviewed and unremarkable except in HPI and below GI: Reports: abdominal pain and nausea; Denies: vomiting, hematemesis, dysphagia, heartburn or early satiety PFSH ED PFSH: Medical History No pertinent family history Surgical History No pertinent past surgical history Physical Exam Const: COMMON NORMALS: no acute distress, average body habitus, patient oriented x3, no limitations, healthy appearing, alert and well nourished HENMT: COMMON NORMALS: normocephalic, atraumatic, hearing grossly normal bilaterally, external ears normal, EAC's normal, TM's normal bilaterally, Normal external nose present, Normal nasal mucous membranes and turbinates present, moist oral mucous membranes, oropharynx normal, dentition normal and gingiva normal HEAD & SCALP: normocephalic and atraumatic NOSE: Normal external nose present and Normal nasal mucous membranes and turbinates present EXTERNAL EAR: Yes external ears normal EXTERNAL AUDITORY CANAL: EAC's normal TYMPANIC MEMBRANE: TM's normal bilaterally Neck/C-Spine: COMMON NORMALS: no JVD Chest: COMMONS NORMALS: normal inspection of the chest, normal palpation of entire chest wall, normal inspection of the breasts and normal palpation of the breasts Breast/axilla inspection: Yes normal inspection of the breasts BREAST/AXILLA PALPATION: Yes normal palpation of the breasts Resp: COMMON NORMALS: normal respiratory effort, No retractions, No use of accessory muscles, clear to auscultation bilaterally and percussion normal AUSCULTATION: clear to auscultation bilaterally PERCUSSION: percussion normal Cardio: COMMON NORMALS: no JVD, regular rate, regular rhythm, S1 normal heart sound present, S2 normal heart sound present, No gallops present (Cardio), No clicks present (Cardio), No murmurs present (Cardio), No rub (Cardio) and Peripheral pulses 2+ throughout RATE: regular rate RHYTHM: regular rhythm HEART SOUNDS: S1 normal heart sound present and S2 normal heart sound present PERIPHERAL PULSES: Peripheral pulses 2+ throughout GI: COMMON NORMALS: Normal to inspection, nondistended, normoactive bowel sounds present, Soft to palpation, non-tender, No hepatosplenomegaly present, no masses and no bruits PALPATION: Yes Soft to palpation and Yes No hepatosplenomegaly present Extremity: COMMON NORMALS: normal to inspection, full ROM, capillary refill normal, no joint enlargement, no clubbing, cyanosis or edema, no calf tenderness and no pedal edema Neuro: COMMON NORMALS: patient oriented x3 SENSORIUM/ORIENTATION: Yes alert Skin: COMMON NORMALS: no rashes or lesions noted, no wounds, turgor normal, no jaundice, no petechiae and no mottling GENERAL SKIN EXAM: no rashes or lesions noted and turgor normal Course Vital Signs: Vital signs: Vital Signs Temperature 97.7 F 03/07/23 20:57 Pulse Rate 84 03/07/23 20:57 Respiratory Rate 16 03/07/23 20:57 Blood Pressure 128/89 03/07/23 20:57 Pulse Oximetry 98 03/07/23 20:57 Oxygen Delivery Me thod Room Air 03/07/23 17:30 MDM - Abdominal Pain Medical Decision Making Patient may come to the emergency room. Patient had extensive work-up with a CBC, CMP, lipase and ultrasound. Discussed ultrasound findings with the tech. Discussed with the patient labs and ultrasound results with patient and at bedside.. Patient was given referral to see general surgery for further evaluation and treatment of this pain. Differential Diagnosis Likely abdominal pain, acute appendicitis, calculus of kidney, constipation, diverticulitis, endometriosis, gastroenteritis, pancreatitis and small bowel obstruction Lab Data 03/07/23 18:10 03/07/23 18:10 Labs/Radiology: Laboratory Results WBC 9.0 10^3/uL (4.0-10.0) 03/07/23 18:10 RBC 3.61 10^6/uL (4.1-5.3) L 03/07/23 18:10 Hgb 9.2 g/dL (11.5-15.3) L 03/07/23 18:10 Hct 29.9 % (37.0-47.0) L 03/07/23 18:10 MCV 82.8 fl (81-99) 03/07/23 18:10 MCH 25.5 pg (28.0-34.0) L 03/07/23 18:10 MCHC 30.8 g/dL (30.0-36.0) 03/07/23 18:10 RDW 16.9 % (12.1-15.1) H 03/07/23 18:10 Plt Count 391 10^3/cmm (130-400) 03/07/23 18:10 MPV 10.1 fL (7.4-10.4) 03/07/23 18:10 Neut % (Auto) 65.1 % 03/07/23 18:10 Lymph % (Auto) 26.4 % 03/07/23 18:10 Phillips % (Auto) 4.1 % 03/07/23 18:10 Eos % (Auto) 2.2 % 03/07/23 18:10 Baso % (Auto) 0.2 % 03/07/23 18:10 Neut # (Auto) 5.85 10^3/uL (1.8-7.7) 03/07/23 18:10 Lymph # (Auto) 2.4 10^3/uL (0.8-4.8) 03/07/23 18:10 Phillips # (Auto) 0.4 10^3/uL (0.2-0.9) 03/07/23 18:10 Eos # (Auto) 0.2 10^3/uL (0.0-0.8) 03/07/23 18:10 Baso # (Auto) 0.0 10^3/uL (0.0-0.1) 03/07/23 18:10 Nucleated RBC % (auto) 0.2 % 03/07/23 18:10 Nucleated RBCs # 0.0 /100WBC 03/07/23 18:10 Sodium 141 mmol/L (136-145) 03/07/23 18:10 Potassium 4.4 mmol/L (3.5-5.1) 03/07/23 18:10 Chloride 106 mmol/L (98-107) 03/07/23 18:10 Carbon Dioxide 24 mmol/L (22-29) 03/07/23 18:10 Anion Gap 15.4 (5-19) 03/07/23 18:10 BUN 14 mg/dL (6-20) 03/07/23 18:10 Creatinine 0.5 mg/dL (0.5-0.9) 03/07/23 18:10 GFR Calculation 146.9 mL/min (90-130) H 03/07/23 18:10 Glucose 77 mg/dL (65-115) 03/07/23 18:10 Calculated Osmolality 291 mOsm/kg (285-295) 03/07/23 18:10 Calcium 9.5 mg/dL (8.5-10.5) 03/07/23 18:10 Magnesium 2.2 mg/dL (1.7-2.3) 03/07/23 18:10 Total Bilirubin 0.2 mg/dL (0.15-1.2) 03/07/23 18:10 AST 35 U/L (0-32) H 03/07/23 18:10 ALT 39 U/L (0-33) H 03/07/23 18:10 Alkaline Phosphatase 149 U/L (35-105) H 03/07/23 18:10 Total Protein 7.0 g/dL (6.6-8.7) 03/07/23 18:10 Albumin 3.8 g/dL (3.5-5.2) 03/07/23 18:10 Globulin 3.2 g/dL (1.3-4.6) 03/07/23 18:10 Lipase 37 U/L (13-60) 03/07/23 18:10 Urine Color [place] (Yellow) 03/07/23 20:07 Urine Appearance Cloudy (CLEAR) A 03/07/23 20:07 Urine pH 7 (5-7) 03/07/23 20:07 Ur Specific [place] 1.010 (1.005-1.030) 03/07/23 20:07 Urine Protein 1+ (Negative) H 03/07/23 20:07 Urine Glucose (UA) Norm (Normal) 03/07/23 20:07 Urine Ketones Negative (Negative) 03/07/23 20:07 Urine Blood 3+ (Negative) H 03/07/23 20:07 Urine Nitrate Negative (Negative) 03/07/23 20:07 Urine Bilirubin Neg (Negative) 03/07/23 20:07 Urine Urobilinogen Norm mg/dL (Negative) 03/07/23 20:07 Ur Leukocyte Esterase 2+ (Negative) H 03/07/23 20:07 Urine RBC 50-80 /hpf (0-2) H 03/07/23 20:07 Urine WBC 15-25 /hpf (0-5) H 03/07/23 20:07 Ur Squamous Epith Cells 0-4 /hpf (0-5) H 03/07/23 20:07 Amorphous Sediment Not Reportable 03/07/23 20:07 Urine Bacteria 1+ /hpf (NONE) H 03/07/23 20:07 Urine Mucus 1+ /hpf 03/07/23 20:07 Discharge Plan Discharge Patient Disposition: Home Clinical Impression: Biliary colic, Acute cholecystitis, UTI (urinary tract infection) Condition: Stable Prescriptions: New Bactrim DS 800-160 mg tablet 1 tab PO DAILY 10 Days Qty: 10 0RF No Action hydroxyzine HCl 10 mg/5 mL solution 10 mg PO PRN PRN (Reason: itching/hives) epinephrine [EpiPen] 0.3 mg/0.3 mL Auto-Injector See Rx Instructions .ROUTE .COMPLEX Rx Instructions: use as directed. cholecalciferol (vitamin D3) [Vitamin D3] 50 mcg (2,000 unit) Tablet 50 mcg PO DAILY epinephrine [EpiPen 2-Jim] 0.3 mg/0.3 mL auto-injector 0.3 mg IM Q10M PRN (Reason: anaphylaxis) Qty: 1 0RF Rx Instructions: do not exceed 3 doses per episode ferrous sulfate 325 mg (65 mg iron) tablet,delayed release (DR/EC) 325 mg PO BIDWM Qty: 60 0RF 1 tab PO DAILY Discharge Orders: Discharge ED (Routine); Ordered 03/07/23 Ordered By: Felicitas Faustin Referrals: Kaveh Matos DO [Physician] - 4-7 days Jackelyn Echevarria DO [Primary Care Provider] - Discharge Diet: Advance as tolerated Discharge Activity: Resume usual activity Patient Instructions: Abdominal Pain (ED), Opioid Safety, Pain Management Coding Level of Care Code ED W[employer] Pattern Coater for Morgan Andres
[2023-03-07 20:14] VITALS: PULSE 84; RESP 16; O2SAT 98
[2023-03-07 20:23] LABS: Add Urine Microscopic? YES; Bilirubin Urine Neg (Negative); Blood Urine 3+ (Negative); Glucose Urine UA Norm (Normal); Ketones Urine Negative (Negative); Leukocyte Esterase Urine 2+ (Negative); Nitrate Urine Negative (Negative); Protein Urine 1+ (Negative); Urine Appearance Cloudy (CLEAR); Urine Color Amber (Yellow); Urobilinogen Urine Norm (Negative); pH Urine 7 (5-7)
[2023-03-07 20:24] LABS: RBC Urine 50-80 /hpf (0-2); Squamous Epithelial Cell Urine 0-4 /hpf (0-5); WBC Urine 15-25 /hpf (0-5)
[2023-03-07 20:25] LABS: Add Urine Culture? Yes; Bacteria Urine 1+ /hpf; Mucus Urine 1+ /hpf
[2023-03-07 20:57] VITALS: BP 128/89; PULSE 84; RESP 16; TEMP 36.5; O2SAT 98
== END 2023-03-07 20:58 | disposition home or self-care (01) ==
PROVIDERS: Family Medicine; Emergency Provider Family Medicine; PCP Family Medicine
DX: K80.00 Calculus of gallbladder with acute cholecystitis without obstruction (principal); N39.0 Urinary tract infection, site not specified
CPT/HCPCS: 71045; 76705; 80053; 81001; 83690; 83735; 85025; 87077; 87086; 87186; 99285

== ENCOUNTER 2023-03-31 08:57 | Inpatient (IN) | payer BC, SELFPAY ==
[2023-03-31 09:04] VITALS: BMI 27.4
[2023-03-31 09:07] VITALS: BP 149/102; PULSE 112; RESP 18; TEMP 37.1; O2SAT 98
--- NOTE | 2023-03-31 09:26 | ED.C_ITS ---
Pt admitted to Dr. Freddie Aleman to take over care. Documented by User: Sandra Betancourt PA-C 03/31/23 10:11 HPI - Psych General: Chief Complaint: Psychiatric Symptoms Stated Complaint: mhe Time Seen by Provider: 03/31/23 09:04 Source: patient and family Mode of arrival: ambulatory Limitations: no limitations History of Present Illness: 27-year-old female who is 1 month tomorrow with a history of depression presents to the ER today for evaluation of depression. Patient reports as a teenager she had depression however her parents did not believe in medicating her. She denies ever seeing a counselor. Patient reports she always just dealt with it. Patient had a somewhat complicated and delivery recently. Patient had diet-controlled gestational diabetes and then was induced. Patient reports she had a 51-hour labor. She delivered vaginally and then hemorrhage. Patient required 2 blood transfusions during her stay. Kunal barth reports while in the hospital she had nightmares about hemorrhaging. Patient reports when she first went home her was able to stay home for a couple of weeks and help her. She reports during that time she noticed some depression starting however with his help she was not concerned. Patient's did go back to work recently and works from 1 PM to about 3 AM. She reports the baby will sleep for 2 to 3 hours at night at a time however then will be awake for a couple of hours and will cry. Patient reports she becomes very overwhelmed and emotional. She tries to always lay the baby down and go to the other room however has found herself at times having intrusive thoughts of hurting the baby to get away from the noise. Patient reports 1 episode of putting her fingers over the baby's mouth before realizing what she was doing and quickly taking it off. Patient reports she also had intrusive thoughts of throwing the baby against the wall to make him stop crying. She reports she would never do that however it bothers her that she ever had those thoughts. Patient is very emotional in the ER today. She is not currently taking any medications other than iron to help with the anemia. Patient is breast-feeding. She reports he latched very well in the hospital and did pretty well however over the last several days has not been eating quite as well from her breast. She does allow him to eat as needed. She is also pumping and able to get quite a bit with pumping. When comes home about 3 AM he does feed baby with a bottle at that time of mother's breastmilk. Patient reports the only thoughts she has of hurting herself would be that she sometimes thinks her child deserves a better mother however has no plan to hurt herself. Patient reports her vaginal bleeding has mostly stopped. She still has some brown tinted discharge. Denies any pain. Patient had a 2-week follow-up with her CHOCOLATE PACKER however no lab work was performed at that time. Review of Systems General: Reports: 10 or more systems reviewed and unremarkable except in HPI and below PFSH ED PFSH: Medical History Gestational diabetes No pertinent family history Surgical History No pertinent past surgical history Physical Exam Const: COMMON NORMALS: no acute distress, average body habitus, patient oriented x3, no limitations, healthy appearing, alert and well nourished GENERAL APPEARANCE: well kempt OTHER: very emotional, tearful HENMT: COMMON NORMALS: normocephalic, atraumatic, external ears normal, Normal external nose present, Normal nasal mucous membranes and turbinates present and moist oral mucous membranes HEAD & SCALP: normocephalic and atraumatic NOSE: Normal external nose present and Normal nasal mucous membranes and turbinates present EXTERNAL EAR: Yes external ears normal Eye: COMMON NORMALS: Equal, round and reactive pupils present and conjunctivae normal CONJUNCTIVA: Yes conjunctivae normal PUPIL: Yes Equal, round and reactive pupils present Lymph: LYMPHATIC: no lymphadenopathy noted Resp: COMMON NORMALS: normal respiratory effort, No retractions and clear to auscultation bilaterally AUSCULTATION: clear to auscultation bilaterally Cardio: COMMON NORMALS: regular rate, regular rhythm and No murmurs present (Cardio) RATE: regular rate RHYTHM: regular rhythm GI: COMMON NORMALS: Normal to inspection, nondistended, normoactive bowel sounds present, Soft to palpation and non-tender PALPATION: Yes Soft to palpation : COMMON NORMALS: Yes no CVA tenderness BLADDER/KIDNEY EXAM: Yes no CVA t enderness Back/Pelvis: COMMON NORMALS: no CVA tenderness, no thoracic nor lumbar tenderness and thoraco-lumbar ROM normal Extremity: COMMON NORMALS: normal to inspection, full ROM and no pedal edema Neuro: COMMON NORMALS: patient oriented x3 SENSORIUM/ORIENTATION: Yes alert Psych: COMMON NORMALS: Normal thought process present APPEARANCE: Yes grossly normal and Yes well kempt MOOD & AFFECT: Yes depressed mood, Yes sad and Yes tearful THOUGHT PROCESS: Normal thought process present THOUGHT CONTENT: Yes other (thoughts of hurting her child and her child having a better mother) Skin: COMMON NORMALS: no rashes or lesions noted and no wounds GENERAL SKIN EXAM: no rashes or lesions noted Course ED course: Patient presents to the ER today with concerns for depression which is worsening. Patient does present today with thoughts of hurting her child and thoughts that her child will be better off without her. Patient is distraught in the ER today and there is evident depression. Her does work nights and is not able to be home all the time. Given this, I think patient is to be evaluated by psychiatry and likely admitted. Patient is breast-feeding which complicates the process however she does pump. Consultations: Consultation #1: Spoke with Dr. Mccall. Plan is for admission. I will speak with family preservation caseworker about working with family to make sure baby has care at home during admission. Mother will be able to pump while inpatient. Time: 10:11 Vital Signs: Vital signs: Vital Signs Temperature 98.7 F 03/31/23 09:07 Pulse Rate 112 H 03/31/23 09:07 Respiratory Rate 18 03/31/23 09:07 Blood Pressure 149/102 03/31/23 09:07 Pulse Oximetry 98 03/31/23 09:07 Oxygen Delivery Me thod Room Air 03/31/23 09:07 MDM - Psych Lab Data 03/31/23 09:32 03/31/23 09:32 Laboratory Results WBC 5.17 10^3/uL (3.29-11.43) 03/31/23 09:32 RBC 4.50 10^6/uL (3.85-5.65) 03/31/23 09:32 Hgb 11.40 g/dL (11.27-16.99) 03/31/23 09:32 Hct 37.3 % (36-47) 03/31/23 09:32 MCV 82.9 fl (85-98) L 03/31/23 09:32 MCH 25.3 pg (27-33) L 03/31/23 09:32 MCHC 30.6 g/dL (30-55) 03/31/23 09:32 RDW 15.5 % (12.1-15.1) H 03/31/23 09:32 Plt Count 261 10^3/cmm (157-399) 03/31/23 09:32 MPV 9.8 fL (7.4-10.4) 03/31/23 09:32 Neut % (Auto) 55.0 % 03/31/23 09:32 Lymph % (Auto) 34.4 % 03/31/23 09:32 Fisher % (Auto) 5.2 % 03/31/23 09:32 Eos % (Auto) 4.6 % 03/31/23 09:32 Baso % (Auto) 0.6 % 03/31/23 09:32 Neut # (Auto) 2.84 10^3/uL (1.8-7.7) 03/31/23 09:32 Lymph # (Auto) 1.8 10^3/uL (0.8-4.8) 03/31/23 09:32 Fisher # (Auto) 0.3 10^3/uL (0.2-0.9) 03/31/23 09:32 Eos # (Auto) 0.2 10^3/uL (0.0-0.8) 03/31/23 09:32 Baso # (Auto) 0.0 10^3/uL (0.0-0.1) 03/31/23 09:32 Nucleated RBC % (auto) 0 % 03/31/23 09:32 Nucleated RBCs # 0.0 /100WBC 03/31/23 09:32 Sodium 142 mmol/L (136-145) 03/31/23 09:32 Potassium 3.9 mmol/L (3.5-5.1) 03/31/23 09:32 Chloride 107 mmol/L (98-107) 03/31/23 09:32 Carbon Dioxide 23 mmol/L (22-29) 03/31/23 09:32 Anion Gap 15.9 (5-19) 03/31/23 09:32 BUN 9 mg/dL (6-20) 03/31/23 09:32 Creatinine 0.6 mg/dL (0.5-0.9) 03/31/23 09:32 GFR Calculation 119.0 mL/min (90-130) 03/31/23 09:32 Glucose 81 mg/dL (65-115) 03/31/23 09:32 Calculated Osmolality 292 mOsm/kg (285-295) 03/31/23 09:32 Calcium 9.2 mg/dL (8.5-10.5) 03/31/23 09:32 Total Bilirubin 0.4 mg/dL (0.15-1.2) 03/31/23 09:32 AST 19 U/L (0-32) 03/31/23 09:32 ALT 18 U/L (0-33) 03/31/23 09:32 Alkaline Phosphatase 111 U/L (35-105) H 03/31/23 09:32 Total Protein 7.1 g/dL (6.6-8.7) 03/31/23 09:32 Albumin 4.3 g/dL (3.5-5.2) 03/31/23 09:32 Globulin 2.8 g/dL (1.3-4.6) 03/31/23 09:32 TSH 1.44 uIU/mL (0.27-4.20) 03/31/23 09:32 Critical Care Time Critical Care Time: Critical Care Time: No Discharge Plan Discharge Condition: Stable Prescriptions: No Action hydroxyzine HCl 10 mg/5 mL solution 10 mg PO PRN PRN (Reason: itching/hives) cholecalciferol (vitamin D3) [Vitamin D3] 50 mcg (2,000 unit) Tablet 50 mcg PO DAILY epinephrine [EpiPen 2-Jim] 0.3 mg/0.3 mL auto-injector 0.3 mg IM Q10M PRN (Reason: anaphylaxis) Qty: 1 0RF Rx Instructions: do not exceed 3 doses per episode ferrous sulfate 325 mg (65 mg iron) tablet,delayed release (DR/EC) 325 mg PO BIDWM Qty: 60 0RF 1 tab PO DAILY Vitamin C 500 mg Capsule, Extended Release 500 mg PO DAILY Referrals: Jackelyn Echevarria DO [Primary Care Provider] - Coding Level of Care Code ED Cash Register Mechanic for Chg Fwd Documented by User: Homero Frazier DO 03/31/23 10:59 HPI - Psych General: Chief Complaint: Psychiatric Symptoms Stated Complaint: mhe Time Seen by Provider: 03/31/23 09:04 PFSH ED PFSH: Medical History Gestational diabetes No pertinent family history Surgical History No pertinent past surgical history Course Vital Signs: Vital signs: Vital Signs Temperature 98.7 F 03/31/23 09:07 Pulse Rate 112 H 03/31/23 09:07 Respiratory Rate 18 03/31/23 09:07 Blood Pressure 149/102 03/31/23 09:07 Pulse Oximetry 98 03/31/23 09:07 Oxygen Delivery Me thod Room Air 03/31/23 09:07 MDM - Psych Medical Decision Making Chart reviewed and patient discussed with midlevel. Agree with assessment and plan.. Orders written Medical Records I reviewed the patient's medical records. Lab Data I reviewed the patient's lab results. 03/31/23 09:32 03/31/23 09:32 Laboratory Results WBC 5.17 10^3/uL (3.29-11.43) 03/31/23 09:32 RBC 4.50 10^6/uL (3.85-5.65) 03/31/23 09:32 Hgb 11.40 g/dL (11.27-16.99) 03/31/23 09:32 Hct 37.3 % (36-47) 03/31/23 09:32 MCV 82.9 fl (85-98) L 03/31/23 09:32 MCH 25.3 pg (27-33) L 03/31/23 09:32 MCHC 30.6 g/dL (30-55) 03/31/23 09:32 RDW 15.5 % (12.1-15.1) H 03/31/23 09:32 Plt Count 261 10^3/cmm (157-399) 03/31/23 09:32 MPV 9.8 fL (7.4-10.4) 03/31/23 09:32 Neut % (Auto) 55.0 % 03/31/23 09:32 Lymph % (Auto) 34.4 % 03/31/23 09:32 Fisher % (Auto) 5.2 % 03/31/23 09:32 Eos % (Auto) 4.6 % 03/31/23 09:32 Baso % (Auto) 0.6 % 03/31/23 09:32 Neut # (Auto) 2.84 10^3/uL (1.8-7.7) 03/31/23 09:32 Lymph # (Auto) 1.8 10^3/uL (0.8-4.8) 03/31/23 09:32 Fisher # (Auto) 0.3 10^3/uL (0.2-0.9) 03/31/23 09:32 Eos # (Auto) 0.2 10^3/uL (0.0-0.8) 03/31/23 09:32 Baso # (Auto) 0.0 10^3/uL (0.0-0.1) 03/31/23 09:32 Nucleated RBC % (auto) 0 % 03/31/23 09:32 Nucleated RBCs # 0.0 /100WBC 03/31/23 09:32 Sodium 142 mmol/L (136-145) 03/31/23 09:32 Potassium 3.9 mmol/L (3.5-5.1) 03/31/23 09:32 Chloride 107 mmol/L (98-107) 03/31/23 09:32 Carbon Dioxide 23 mmol/L (22-29) 03/31/23 09:32 Anion Gap 15.9 (5-19) 03/31/23 09:32 BUN 9 mg/dL (6-20) 03/31/23 09:32 Creatinine 0.6 mg/dL (0.5-0.9) 03/31/23 09:32 GFR Calculation 119.0 mL/min (90-130) 03/31/23 09:32 Glucose 81 mg/dL (65-115) 03/31/23 09:32 Calculated Osmolality 292 mOsm/kg (285-295) 03/31/23 09:32 Calcium 9.2 mg/dL (8.5-10.5) 03/31/23 09:32 Total Bilirubin 0.4 mg/dL (0.15-1.2) 03/31/23 09:32 AST 19 U/L (0-32) 03/31/23 09:32 ALT 18 U/L (0-33) 03/31/23 09:32 Alkaline Phosphatase 111 U/L (35-105) H 03/31/23 09:32 Total Protein 7.1 g/dL (6.6-8.7) 03/31/23 09:32 Albumin 4.3 g/dL (3.5-5.2) 03/31/23 09:32 Globulin 2.8 g/dL (1.3-4.6) 03/31/23 09:32 TSH 1.44 uIU/mL (0.27-4.20) 03/31/23 09:32 Discharge Plan Discharge Condition: Stable Prescriptions: No Action hydroxyzine HCl 10 mg/5 mL solution 10 mg PO PRN PRN (Reason: itching/hives) cholecalciferol (vitamin D3) [Vitamin D3] 50 mcg (2,000 unit) Tablet 50 mcg PO DAILY epinephrine [EpiPen 2-Jim] 0.3 mg/0.3 mL auto-injector 0.3 mg IM Q10M PRN (Reason: anaphylaxis) Qty: 1 0RF Rx Instructions: do not exceed 3 doses per episode ferrous sulfate 325 mg (65 mg iron) tablet,delayed release (DR/EC) 325 mg PO BIDWM Qty: 60 0RF 1 tab PO DAILY Vitamin C 500 mg Capsule, Extended Release 500 mg PO DAILY Referrals: Jackelyn Echevarria DO [Primary Care Provider] - Coding Level of Care Code ED Cash Register Mechanic for Chg Mckenna
[2023-03-31 09:39] LABS: Basophils % 0.6 %; Eosinophils # 0.2 10^3/uL (0.0-0.8); Eosinophils % 4.6 %; Hematocrit 37.3 % (36-47); Lymphocytes # 1.8 10^3/uL (0.8-4.8); Lymphocytes % 34.4 %; Mean Corpuscular HGB Conc 30.6 g/dL (30-55); Mean Corpuscular Hemoglobin 25.3 pg (27-33); Mean Corpuscular Volume 82.9 fl (85-98); Mean Platelet Volume 9.8 fL (7.4-10.4); Monocytes # 0.3 10^3/uL (0.2-0.9); Monocytes % 5.2 %; Neutrophils # 2.84 10^3/uL (1.8-7.7); Nucleated Red Blood Cells % 0 %; Platelet Count 261 10^3/cmm (157-399); Red Cell Distribution Width 15.5 % (12.1-15.1); White Blood Count 5.17 10^3/uL (3.29-11.43)
[2023-03-31 10:05] LABS: Alanine Aminotransferase 18 U/L (0-33); Albumin Level 4.3 g/dL (3.5-5.2); Alkaline Phosphatase 111 U/L (35-105); Anion Gap 15.9 (5-19); Aspartate Amino Transferase 19 U/L (0-32); Blood Urea Nitrogen 9 mg/dL (6-20); Calcium 9.2 mg/dL (8.5-10.5); Carbon Dioxide 23 mmol/L (22-29); Chloride 107 mmol/L (98-107); Globulin 2.8 g/dL (1.3-4.6); Glucose 81 mg/dL (65-115); Osmolality Calculated 292 mOsm/kg (285-295); Potassium 3.9 mmol/L (3.5-5.1); Sodium 142 mmol/L (136-145); Thyroid Stimulating Hormone 1.44 uIU/mL (0.27-4.20); Total Bilirubin 0.4 mg/dL (0.15-1.2); Total Protein 7.1 g/dL (6.6-8.7)
[2023-03-31 11:27] LABS: Add Urine Microscopic? YES; Bilirubin Urine Neg (Negative); Blood Urine 3+ (Negative); Glucose Urine UA Norm (Normal); Ketones Urine Negative (Negative); Leukocyte Esterase Urine 2+ (Negative); Nitrate Urine Negative (Negative); Protein Urine Neg (Negative); Specific Gravity, Urine 1.005 (1.005-1.030); Urine Appearance Clear (CLEAR); Urine Color Yellow (Yellow); Urobilinogen Urine Norm (Negative); WBC Urine 15-25 /hpf (0-5); pH Urine 5 (5-7)
[2023-03-31 11:28] LABS: Add Urine Culture? Yes; Bacteria Urine 1+ /hpf; Mucus Urine 1+ /hpf
--- NOTE | 2023-03-31 11:38 | PC.NURSE ---
PATIENT IS HIGHLY ALLERGIC TO CHICKEN, NUTRITION NOTIFIED.
[2023-03-31 11:41] VITALS: BP 123/81
[2023-03-31 11:42] VITALS: PULSE 98
[2023-03-31 14:00] VITALS: BP 134/91; PULSE 100; RESP 16; TEMP 36.6; O2SAT 99
[2023-03-31] MEDS: PARoxetine 20 mg Tablet PO (16:34)
[2023-03-31] MEDS: acetaminophen 325 mg Tablet 650 MG PO (16:57)
[2023-03-31] MEDS: ferrous sulfate EC 325 mg Tablet PO (17:00)
--- NOTE | 2023-03-31 17:37 | PC.NURSE ---
Patient arrived to unit very tearful and upset. When performing skin assessment patient began crying and asked if patients were allowed to touch each other on the unit. Nursing staff informed her that it was not allowed to which she replied, good, because I have a severe chicken allergy. She stated that she came to the hospital because she been having thoughts of smothering her 1 month old baby with a pillow or slamming him against the wall because he wouldn't stop crying. Patient said that 2 or 3 weeks after the baby was born she began yelling at him occasionally when he would cry and she couldn't get him to stop. She appeared very remorseful when talking about her thoughts and actions towards the child as she was crying and shaking her head saying, I know I should never do that. Patient very paranoid about her chicken allergy as she says it is extremely severe and causes anaphylaxis. Patient stated when she was younger her father would tell her she would eventually from the allergy and that she doesn't leave the house much for fear of having contact with something that could trigger this. Patient also says she had a hemorrhage when she had her child that resulted in her having 2 blood transfusions and subsequent nightmares. Endorses having stronger anxiety and depressive symptoms in the accounts receivable specialist and late night. She does not get much sleep because her currently works the second shift from 12pm to 3am and she is home alone with their . However, she does voice that she has a large support system that includes her siblings, mother, spouse, and other members of her family. She was cooperative during the assessment, but visibly anxious and tearful.
[2023-03-31 19:36] VITALS: BP 117/74; PULSE 97; RESP 18; TEMP 36.8; O2SAT 100
[2023-03-31] MEDS: trazodone 50 mg Tablet PO (20:39)
[2023-04-01 06:00] VITALS: RESP 16
--- NOTE | 2023-04-01 06:35 | PC.NURSE ---
pt resting vs not taken resp 16
[2023-04-01] MEDS: ascorbic acid 500 mg Tablet PO (08:20)
[2023-04-01] MEDS: ferrous sulfate EC 325 mg Tablet PO ×2 (08:20→18:25)
[2023-04-01] MEDS: PARoxetine 20 mg Tablet PO (08:20)
[2023-04-01] MEDS: prenatal vitamin Capsule 1 CAP PO (08:20)
[2023-04-01] MEDS: cholecalciferol (vitamin D3) 1,000 unit Tablet 2000 UNIT PO (08:20)
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
[2023-04-01 13:38] VITALS: BP 115/74; PULSE 93; RESP 16; TEMP 36.9; O2SAT 97
[2023-04-01 20:29] VITALS: BP 119/84; PULSE 77; RESP 18; O2SAT 99
[2023-04-02 06:00] VITALS: RESP 16
[2023-04-02] MEDS: PARoxetine 20 mg Tablet PO (08:34)
[2023-04-02] MEDS: cholecalciferol (vitamin D3) 1,000 unit Tablet 2000 UNIT PO (08:34)
[2023-04-02] MEDS: ferrous sulfate EC 325 mg Tablet PO ×2 (08:34→18:06)
[2023-04-02] MEDS: ascorbic acid 500 mg Tablet PO (08:34)
[2023-04-02] MEDS: prenatal vitamin Capsule 1 CAP PO (08:34)
--- NOTE | 2023-04-02 09:57 | PC.NURSE ---
During morning assessment, patient stated that she feels a lot better today, that she feels like me . Patient stated that she is getting much needed rest. Patient said that she has support when she leaves the unit. Patient stated that her family is going to help her with the baby when she leaves. Patient denied SI, HI, AVH, depression, and anxiety. Patient admitted to this nurse that she would have passing thoughts of her baby being slammed against a wall or having a pillow on his face. Patient said that she didn't think of herself doing these things, just that they were done. Patient denies these thoughts presently.
[2023-04-02] MEDS: sennosides 8.6 mg Tablet PO (10:34)
--- NOTE | 2023-04-02 13:51 | P.NPUPN_ITS ---
Subjective NPU Subjective: Patient presented today reporting that she is feeling much better than when she came in. She reports that the Paxil has been helpful in lifting her spirits. We also discussed the impact of getting restful sleep here on her overall functioning. She discussed the support plan that her family has put together to assist her and her over these next couple of weeks. We discussed the l ikelihood of discharge in the next 48 hours. Mental Status Exam MSE Comments: This is an overweight versus obese white female in hospital scrubs with appropriate grooming and eye contact. No abnormal movements except for resolving mild psychomotor retardation. Cooperative with exam in no acute distress. Speech was more normal rate and volume. Mood described as better, affect congruent. Thought process organized. Thought content: Patient denied suicidal ideation or any aggression that could prove lethal towards her baby, there were no delusions reported or noted, she denied any auditory or visual hallucinations. Attention and concentration were intact and memory appeared reliable but none were formally tested. She is alert and oriented x3. Insight appears fair judgment and impulse control appear limited, but improving. Vitals/I&O/Wt Last Vital Signs Temp 98.5 F 04/01/23 13:38 Pulse 77 04/01/23 20:29 Resp 16 04/02/23 06:00 BP 119/84 04/01/23 20:29 Pulse Ox 99 04/01/23 20:29 O2 Del Method Room Air 04/01/23 20:29 Weight last 48 hrs Weight 88.564 kg Data NPU 03/31/23 09:32 03/31/23 09:32 Micro: Microbiology 03/31/23 10:55 Urine Culture - Final Urine,Clean Catch Microbiology 03/31/23 10:55 Urine,Clean Catch Urine Culture - Final A&P Assessment and plan (1) Major depressive disorder, recurrent, with onset: (2) Symptomatic cholelithiasis: (3) Spontaneous vaginal delivery: (4) hemorrhage: (5) PTSD (post-traumatic stress disorder): Plan This is a 27-year-old white female approximately 30 days with a long history of mental health challenges including depression which has never been treated with medication who presents with significant challenges including thoughts of harming the baby. 1. Continue current medication. Started Paxil 20 mg p.o. every morning given p atient is breast-feeding. 2. Continue to 15-minute checks for safety. 3. Encourage individual, group and milieu therapies. 4. Work with the treatment team to ensure appropriate outpatient supports given this stressful time. Involuntary Hold Information 96 Hour Hold: 96 Hour Involuntary Admission: No Attestations NPU Medical Necessity Statement*: Inpatient hospitalization is medically necessary and the clinically appropriate intervention at this time. We will monitor/initiate medications and make march es as indicated. Likely length of stay 1-3 days. Coding Level of Care Code Acute Code for [facility] Fwd Diagnoses Major depressive disorder, recurrent, with onset O99.345; F33.9 Symptomatic cholelithiasis K80.20 Spontaneous vaginal delivery O80 hemorrhage O72.1 PTSD (post-traumatic stress disorder) F43.10
[2023-04-02 14:00] VITALS: BP 104/72; PULSE 94; RESP 16; TEMP 37.1; O2SAT 96
--- NOTE | 2023-04-02 18:40 | PC.NURSE ---
Patient reports pain and heat in breasts. Dr. Mccall notified via text about possibility of mastitis
[2023-04-02 20:16] VITALS: BP 118/74; PULSE 85; RESP 18; TEMP 37.3; O2SAT 97
[2023-04-02] MEDS: acetaminophen 325 mg Tablet 650 MG PO (20:18)
[2023-04-03] MEDS: acetaminophen 325 mg Tablet 650 MG PO ×2 (01:50→06:53)
[2023-04-03 06:00] VITALS: BP 124/71; PULSE 91; RESP 16; TEMP 36.9; O2SAT 97
[2023-04-03] MEDS: PARoxetine 20 mg Tablet PO (08:54)
[2023-04-03] MEDS: cholecalciferol (vitamin D3) 1,000 unit Tablet 2000 UNIT PO (08:54)
[2023-04-03] MEDS: ascorbic acid 500 mg Tablet PO (08:54)
[2023-04-03] MEDS: prenatal vitamin Capsule 1 CAP PO (08:54)
[2023-04-03] MEDS: ferrous sulfate EC 325 mg Tablet PO (08:54)
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
[2023-04-03 11:46] VITALS: BP 124/71; PULSE 91; RESP 16; TEMP 36.9; O2SAT 97
--- NOTE | 2023-04-03 12:58 | PC.NURSE ---
DISCHARGE INSTRUCTIONS DISCUSSED AN LEFT WITH PATIENT. PHARMACY DELIVERED RX GIVEN TO PT UPON DISCHARGE. PT STATED UNDERSTANDING AND COMPLIANCE.
== END 2023-04-03 13:00 | disposition home or self-care (01) | DRG 776 ==
LOC: ER 10:29 → NP 11:05
PROVIDERS: Physician Assistant; Admitting Provider Psychiatry & Neurology Psychiatry; Emergency Provider Family Medicine; PCP Family Medicine; Visit Provider Psychiatry & Neurology Psychiatry
DX: O99.345 Other mental disorders complicating the puerperium (principal); F53.0 Postpartum depression; O90.81 Anemia of the puerperium; D64.9 Anemia, unspecified; Z81.8 Family history of other mental and behavioral disorders
CPT/HCPCS: 36415; 80053; 81001; 84443; 85025; 87086; 97150; 97165; 99238; 99285